=== PATIENT | male | born 1970 | race Caucasian/White ===

== ENCOUNTER 2023-04-03 12:23 | Outpatient (OUT) | payer BC, SELFPAY ==
[2023-04-03 13:17] LABS: Estimated Average Glucose 157 mg/dL; Glycohemoglobin A1C 7.1 % (4.5-6.2)
[2023-04-03 13:25] LABS: Basophils Percent Auto 0.4 % (0.2-2.0); Eosinophils Absolute Auto 0.1 10^3/uL (0.0-0.7); Eosinophils Percent Auto 2.1 % (0.9-7.0); Hematocrit 44.8 % (42.0-54.0); Hemoglobin 14.6 g/dL (14.0-18.0); Immature Granulocytes Abs Auto 0.01 10^3/uL (0.00-0.03); Immature Granulocytes Pct Auto 0.2 % (0.0-0.5); Lymphocytes Absolute Auto 1.8 10^3/uL (1.2-3.8); Lymphocytes Percent Auto 33.7 % (20.5-60.0); Mean Corpuscular HGB Conc 32.6 g/dL (29.9-35.2); Mean Corpuscular Hemoglobin 29.8 pg (25.9-34.0); Mean Corpuscular Volume 91.4 fL (80.0-94.0); Mean Platelet Volume 11.4 fL (9.5-13.5); Monocytes Absolute Auto 0.5 10^3/uL (0.3-0.8); Monocytes Percent Auto 8.8 % (1.7-12.0); Neutrophils Absolute Auto 2.9 10^3/uL (1.4-6.5); Neutrophils Percent Auto 54.8 % (43.0-75.0); Platelet Count 217 10^3/uL (150-450); Red Cell Distribution Width 13.2 % (11.0-15.0); White Blood Count 5.3 10^3/uL (4.0-11.0)
[2023-04-03 14:11] LABS: Alanine Aminotransferase 40 U/L (16-63); Albumin Globulin Ratio 1.1; Albumin Level 3.9 g/dL (3.4-5.0); Alkaline Phosphatase 115 U/L (46-116); Anion Gap 10.8; Aspartate Amino Transferase 25 U/L (15-37); BUN Creatinine Ratio 10.6; Bilirubin Total 0.9 mg/dL (0.2-1.0); Calcium 8.5 mg/dL (8.5-10.1); Chloride 104 mmol/L (98-107); Chol HDL Ratio 4.1; Cholesterol 169 mg/dL (<=200); Estimated GFR (African America >60 (>=60); Estimated GFR (Non-African Ame >60 (>=60); Globulin 3.4 g/dL; Glucose 124 mg/dL (74-106); HDL Cholesterol 41 mg/dL (40-60); Potassium 3.8 mmol/L (3.5-5.1); Sodium 138 mmol/L (136-145); Thyroid Stimulating Hormone 3.481 uIU/mL (0.358-3.740); Total Protein 7.3 g/dL (6.4-8.2); Triglycerides 176 mg/dL (<=150); VLDL CHOLESTEROL 35.2 mg/dL
== END 2023-04-03 12:24 | disposition home or self-care (01) ==
LOC: LAB 12:29
PROVIDERS: PCP Nurse Practitioner Family; Visit Provider Nurse Practitioner Family
DX: I10 Essential (primary) hypertension (principal); E78.2 Mixed hyperlipidemia; R63.8 Other symptoms and signs concerning food and fluid intake; Z83.3 Family history of diabetes mellitus
CPT/HCPCS: 36415; 80053; 80061; 83036; 84443; 85025

== ENCOUNTER 2023-06-13 11:20 | Outpatient (OUT) | payer BC, SELFPAY ==
[2023-06-13 11:59] LABS: Anion Gap 14.8; Calcium 8.6 mg/dL (8.5-10.1); Carbon Dioxide 25.2 mmol/L (21.0-32.0); Chloride 104 mmol/L (98-107); Estimated GFR (African America >60 (>=60); Estimated GFR (Non-African Ame >60 (>=60); Glucose 98 mg/dL (74-106); Sodium 140 mmol/L (136-145)
== END 2023-06-13 11:21 | disposition home or self-care (01) ==
PROVIDERS: PCP Nurse Practitioner Family; Visit Provider Internal Medicine Cardiovascular Disease
DX: I25.10 Atherosclerotic heart disease of native coronary artery without angina pectoris (principal); Z95.5 Presence of coronary angioplasty implant and graft; E78.5 Hyperlipidemia, unspecified; R60.0 Localized edema
CPT/HCPCS: 36415; 80048

== ENCOUNTER 2024-05-21 10:53 | Outpatient (OUT) | payer OTHER, SELFPAY ==
--- OUTSIDE RECORDS SUMMARY | 2024-05-21 10:57 | XMS_ITS | CCD ---
Author Organization [facility] Care Team Providers Care Stone Rougher Name Role Phone Tri Thorpe Unavailable [phone] Pb Madison Unavailable Tri Thorpe Unavailable Unavailable Unavailable Oleg Tran Referring Unavailable Oleg Tran Attending Unavailable JUSTYNA Thorpe Primary Care Provider JUSTYNA Thorpe Attending Provider DO Pb Madison Attending Provider [phone] Sebastien Cohen Unavailable JUSTYNA Thorpe Primary Care Provider MD Alejandra Da Silva Attending Provider [phone] JUSTYNA Thorpe Referring Provider JUSTYNA Thorpe Attending Provider Alejandra Da Silva Unavailable TRI THORPE Primary Care Unavail able MD Alejandra Da Silva Attending Provider JUSTYNA Thorpe Primary Care Provider JUSTYNA Thorpe Referring Provider JUSTYNA Thorpe Attending Provider FLO Hamlin Attending Provider [phone] Radha Hamlin Unavailable SOREN VAUGHAN Attending Unavailable Rohrbacher, Tri Primary Care Unavailable Hamlin, Radha Attending Unavailable Hamlin, Radha Admitting Unavailable Rohrbacher, Tri Primary Care Unavailable Alejandra Da Silva Attending Unavailable Rekha, Kamal Admitting Unavailable Erlinrbmarilynr Tri Referring Unavailable Rohrbacher, Tri Primary Care Unavailable Rohrbacher, Tri Admitting Unavailable Rohrbacher, Rti Attending Unavailable Alejandra Da Silva Attending Unavailable Rekha, Kamal Admitting Unavailable Rohrbacher, Tri Primary Care Unavailable Pb Madison Attending Unavailable Pb Madison Admitting Unavailable Rohrbmarilynr, Tri Primary Care Unavailable Allergies Allergy Classification Reported Allergen(s) Allergy Type Date of Onset Reaction(s) Facility Niacin (1 source) Niacin Drug Allergy 08-31-2023 [facility] Repository (18 sources) Niacin; Translations: [NIACIN] Drug Allergy 06-06-2023 Unknown [place] [id number] Repository (1 source) Niaspan TBCR; Translations: [Niaspan TBCR] Allergy to drug (finding) [facility] 250 DO Work Phone: Medications Current Medications Medication Drug Class(es) Dates Sig (Normalized) Sig (Original) 0.5 ML tirzepatide 10 MG/ML Auto-Injector [Mounjaro] (2 sources) Mounjaro 5 MG/0. 5ML INJECT 5MG UNDER THE SKIN ONCE WEEKLY for 28 7.5 mg dose, NOT 5 Active inject 5 mg by subcu taneous injection every week Mounjaro 5 MG/0.5ML 5 mg Subcutaneous Once weekly for 30 days Active 0.5 ML tirzepatide 15 MG/ML Auto-Injector [Mounjaro] (2 sources) Mounjaro 7.5 MG/ 0.5ML as directed Subcutaneous Once weekly for 28 days Active 0.5 ML tirzepatide 20 MG/ML Auto-Injector [Mounjaro] (1 source) Start: 07-06-2023 inject 10 mg by subcutaneous injection every week Mounjaro 10 MG/0.5ML 10 mg Subcutaneous Q week for 28 days E11.9 Jun, Active 0.5 ML tirzepatide 5 MG/ML Auto-Injector [Mounjaro] (5 sources) Start: 04-20-2023 Mounjaro 2.5 MG/0.5ML as directed Subcutaneous Once weekly for 28 days Apr, Active acetaminophen 500 mg oral tablet (15 sources) Start: 09-18-2023 take 1 tablet by mouth every six hours Acetaminophen (Tylenol Extra Strength) 500 mg tablet Active 500 MG PO Every 6 hours September 18, 2023 1:00am Tylenol PRN Acti ve amLODIPine 5 mg / benazepril hydrochloride 20 mg oral capsule (16 sources) Dihydropyridine Calcium Channel Santi, Angiotensin Converting Enzyme Inhibitor Start: 09-18-2023 End: 03-01-2024 take 1 capsule by mouth once daily Amlodipine-Benazepril Active 1 CAP PO Daily 90 March 01, 2024 8:20am Start: 04-27-2023 take 5-20 mg by mout h once daily amLODIPine Besy-Benazepril HCl - 5-20 MG Oral Capsule TAKE 1 CAPSULE Daily Quantity: 90 Refills: 3 Ordered: 27-Apr-2023 Oleg Tran MD Start : 27-Apr-2023 Active new start amLODIPine Besy- Benazepril HCl 5-20 MG as directed Orally Lotrel Active atorvastatin 80 mg oral tablet (20 sources) HMG-CoA Reductase Inhibitor Start: 09-18-2023 End: 03-01-2024 take 80 mg by mouth once daily Atorvastatin Active 80 MG PO Daily 90 90 March 01, 2024 8:20am take 1 tablet by corey th every twenty-four hours Atorvastatin Calcium 80 MG 1 tablet Oral ly Once a day Active clopidogrel 75 mg oral tablet (19 sources) [id number] Platelet Inhibitor Start: 09-18-2023 take 75 mg by mouth once daily Clopidogrel Active 75 MG PO Daily September 18, 2023 1:00am take 1 tablet by corey th every twenty-four hours Clopidogrel Bisulfate 75 MG 1 tablet Orally Once a day Active lisinopril 5 mg oral tablet (5 sources) Angiotensin Converting Enzyme Inhibitor take 1 tablet by mouth every twenty-four hours Lisinopril 5 MG 1 tablet Orally Once a day Active 24 hr metoprolol succinate 100 mg extended release oral tablet (20 sources) beta-Adrenergic Santi Start: End: take 100 mg by mouth once daily Metoprolol Succinate Active 100 MG PO Daily 90 90 March 01, 2024 8:20am take 1 tablet by corey th every twenty-four hours Metoprolol Succinate ER 100 MG 1 tablet Orally Once a day Active mounjaro 10 mg/0.5ml solution pen-injector (4 sources) inject 10 mg by subcutaneous injection every week Mounjaro 10 MG/0.5ML 10 mg Subcutaneous Q week for 28 days Active mounjaro 5 mg/0.5ml solution pen-injector (1 source) Mounjaro 5 MG/0. 5ML INJECT 5MG UNDER THE SKIN ONCE WEEKLY for 28 7.5 mg dose, NOT 5 Active Tirzepatide (1 source) Start: 03-01-2024 Tirzepatide (Mounjaro) 2.5 mg/0.5 mL pen injector Active 2.5 MG SUBCUT every week 10 07March 01, 2024 12:00am Completed/Discontinued Medications Medication Drug Class(es) Dates Sig (Normalized) Sig (Original) mounjaro 12.5 mg/0.5ml solution pen-injector (6 sources) Start: 07-06-2023 inject 12.5 mg by subcutaneous injection every week as needed Mounjaro 12.5 MG/0.5ML 12.5 MG Subcutaneous Q week for 28 days E11.9 27 Jun, 2023 Not-Taking/PRN Start: 07-06-2023 inject 12.5 mg by jack bcutaneous injection every week Mounjaro 12.5 MG/0.5ML 12.5 MG Subcutaneous Q week for 28 days E11.9 Jun, Active inject 12.5 mg by jack bcutaneous injection every week Mounjaro 12.5 MG/0.5ML 12.5 mg Subcutaneous Once weekly for 28 days can fill 10 mg if not available Active Mounjaro 2.5 MG/0.5ML Subcutaneous Solution Pen-injector (1 source) Mounjaro 2.5 MG/ 0.5ML Subcutaneous Solution Pen-injector as directed Quantity: 0 Refills: 0 Ordered: 27-Apr-2023 DO Active Tirzepatide (2 sources) Start: 10-08-2023 End: 03-01-2024 inject 15 mg by subcutaneous injection every week Tirzepatide Discontinued 15 MG SUBCUT every week 2 October 08, 2023 1:22pm March 01, 2024 8:07am Start: 10-08-2023 End: 10-08-2023 inject 15 mg by subcutaneous injection every week Tirzepatide Discontinued 15 MG SUBCUT every week October 08, 2023 1:00am October 08, 2023 1:23pm Tirzepatide (1 source) Start: 09-18-2023 End: 10-08-2023 inject 12.5 mg by subcutaneous injection every week Tirzepatide Discontinued 12.5 MG SUBCUT every week September 18, 2023 1:00am October 08, 2023 1:21pm Problems Active Problems Problem Classification Problem Date Documented Date Episodic/Chronic Coronary atherosclerosis and other heart disease (20 sources) Lipid-rich atherosclerosis of coronary artery; Translations: [Coronary atherosclerosis due to lipid rich plaque] Chronic Coronary atherosclerosis and other heart disease (1 source) Presence of coronary angioplasty implant and graft Episodic Diabetes mellitus without complication (20 sources) Type 2 diabetes mellitus; Translations: [Type 2 diabetes mellitus without complications] Chronic Disorders of lipid metabolism (20 sources) Mixed hyperlipidemia; Translations: [Mixed hyperlipidemia] Chronic Essential hypertension (20 sources) Essential hypertension; Translations: [Essential (primary) hypertension] Chronic Miscellaneous mental health disorders (4 sources) Not getting enough sleep; Translations: [Insufficient sleep syndrome] Chronic Other connective tissue disease (2 sources) Other specified soft tissue disorders Episodic Other diseases of veins and lymphatics (18 sources) Venous insufficiency of leg; Translations: [Venous insufficiency (chronic) (peripheral)] 09-18-2023 Episodic Other diseases of veins and lymphatics (4 sources) Venous insufficiency (chronic) (peripheral); Translations: [Venous (peripheral) insufficiency, unspecified] Episodic Other liver diseases (1 source) Fatty (change of) liver, not elsewhere classified; Translations: [Fatty (change of) liver, not elsewhere classified] Onset: 05-07-2023 Chronic Other nutritional; endocrine; and metabolic disorders (17 sources) Morbid obesity; Translations: [Morbid (severe) obesity due to excess calories] Chronic Other nutritional; endocrine; and metabolic disorders (5 sources) Morbid (severe) obesity due to excess calories; Translations: [Morbid obesity] Chronic Other nutritional; endocrine; and metabolic disorders (5 sources) Body mass index 40+ - severely obese; Translations: [Morbid obesity] 09-18-2023 Chronic Other nutritional; endocrine; and metabolic disorders (8 sources) Obesity; Translations: [Other obesity] Chronic Other nutritional; endocrine; and metabolic disorders (1 source) Other obesity Chronic Other nutritional; endocrine; and metabolic disorders (1 source) Body mass index (BMI) 45.0-49.9, adult Chronic Other nutritional; endocrine; and metabolic disorders (1 source) Other symptoms and signs concerning food and fluid intake Episodic Other screening for suspected conditions (not mental disorders or infectious disease) (3 sources) Encounter for screening for malignant neoplasm of colon; Translations: [Patient encounter status] Episodic Residual codes; unclassified (20 sources) Obstructive sleep apnea syndrome; Translations: [Obstructive sleep apnea (adult) (pediatric)] 09-18-2023 Chronic Residual codes; unclassified (7 sources) Obstructive sleep apnea (adult) (pediatric); Translations: [Obstructive sleep apnea (adult)(pediatric)] Chronic Residual codes; unclassified (3 sources) Idiopathic sleep related non-obstructive alveolar hypoventilation; Translations: [Idiopathic sleep related nonobstructive alveolar hypoventilation] Chronic Residual codes; unclassified (1 source) Idiopathic sleep related nonobstructive alveolar hypoventilation Chronic Residual codes; unclassified (1 source) Obstructive sleep apnea (adult)(pediatric); Translations: [Obstructive sleep apnea (adult) (pediatric)] Onset: 08-17-2023 Chronic Residual codes; unclassified (1 source) Hypoxia; Translations: [Idiopathic sleep related nonobstructive alveolar hypoventilation] 09-18-2023 Chronic Residual codes; unclassified (1 source) Family history of diabetes mellitus Episodic Residual codes; unclassified (1 source) Localized edema Episodic Residual codes; unclassified (1 source) Bilateral lower limb edema; Translations: [Edema] Episodic Screening and history of mental health and substance abuse codes (1 source) Ex-smoker; Translations: [Personal history of tobacco use] Episodic Comment on above: 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; Past or Other Problems Problem Classification Problem Date Documented Da te Episodic/Chronic Administrative/social admission (7 sources) Dietary counseling and surveillance; Translations: [Other specified counseling] Onset: 08-31-2023 Episodic Results Test Name Value Interpretation Reference Range Facil ity Office Visit (Cardiology)on 04-27-2023 Follow-up visit Diagnoses/Problems Assessed ASHD (arteriosclerotic heart disease) (414.00) (I25.10) Status post insertion of drug eluting coronary artery stent (V45.82) (Z95.5) Hyperlipidemia (272.4) (E78.5) Former smoker (V15.82) (Z87.891) FORMER OCCASIONAL SMOKER Morbid obesity with BMI of 60.0-69.9, adult (278.01,V85.44) (E66.01,Z68.44) Bilateral leg edema (782.3) (R60.0) Type 2 diabetes mellitus (250.00) (E11.9) Hypertension (401.9) (I10) Obstructive sleep apnea syndrome (327.23) (G47.33) Orders ASHD (arteriosclerotic heart disease), Bilateral leg edema, Hyperlipidemia, Status post insertion of drug eluting coronary artery stent Basic Metabolic Panel; Status:Active - Retrospective Authorization; Requested for:11May2023; ASHD (arteriosclerotic heart disease), Hyperlipidemia Renew: Atorvastatin Calcium 80 MG Oral Tablet; TAKE 1 TABLET PO DAILY ASHD (arteriosclerotic heart disease), Hypertension, Status post insertion of drug eluting coronary artery stent Renew: Clopidogrel Bisulfate 75 MG Oral Tablet; TAKE 1 TABLET DAILY IO EKG Electrocardiogram- 12 Lead; Status:Complete; Done: [id number] Renew: Metoprolol Succinate ER 100 MG Oral Tablet Extended Release 24 Hour; TAKE 1 TABLET DAILY Hypertension Start: amLODIPine Besy-Benazepril HCl - 5-20 MG Oral Capsule; TAKE 1 CAPSULE Daily Morbid obesity with BMI of 60.0-69.9, adult Healthy Weight Tips; Status:Complete - Retrospective Authorization; Done: [id number] Some eating tips that can help you lose weight.; Status:Complete - Retrospective Authorization; Done: [id number] SocHx: Former smoker Tobacco Use Screening; Status:Complete; Done: [id number] Unlinked Stop: Lisinopril 5 MG Oral Tablet Patient Instructions Please bring all medicines, vitamins, and herbal supplements with you when you come to the office. Prescriptions will not be filled unless you are compliant with your follow up appointments or have a follow up appointment scheduled as per instruction of your physician. Refills should be requested at the time of your visit. patient to keep pending visit with vascular stop Lininopril start amlodipine-benazepril labs ordered Blood Pressure Follow Up In 5-6 Follow up in 6 months Chief Complaint ROHRBACKER-CAD,PCI,LIP IDS. 53-year-old white male who is being referred to me for establishing cardiac relationship due to previous coronary stenting of the LAD in [place] in 2005. Has had no events since that time. He is morbidly obese male, he weighs 450 pounds and BMI of 61 kg per metered squared. The patient had no events since his angioplasty, he has a recent diagnosis of diabetes with history of hypertension and hyperlipidemia he is non-smoker. He has no previous history of strokes or TIA. No family history of premature CAD. 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 He is suspected to have sleep apnea and is scheduled to have home sleep study in the near future. He denies any angina palpitations no orthopnea or PND. He has no ulcerations on his feet. He has no peptic ulcer disease. He denies any angina orthopnea PND or palpitations and no dyspnea on exertion. His examination is remarkable for morbid obesity and stage II hypertension. His heart sounds are normal and his lungs are clear. His legs examination does not indicate significant PAD. Assessment/recommendat ions: 1?history of CAD status post PCI in 2016 the LAD with no prior infarction. He is on beta-santi therapy and Plavix along with high intensity statin. Present medical therapy will be left as it is. Address risk factor for CAD in details. Emphasized the need for maintaining regular exercise and losing weight. No indication presently for ischemia evaluation. 2?hypertension, currently uncontrolled. Will add Lotrel 5/20 mg daily and follow his blood pressure readings in few weeks. Low-salt diet and losing weight was recommended 3?diabetes recently diagnosed on medical therapy followed by PCP 4?hyperlipidemia on maximal dose atorvastatin which has been well-tolerated. The recent lab data done through her PCP was requested. LDL goal less than 70 mg/dL. 5?suspected sleep apnea patient scheduled for sleep study 6?morbid obesity, discussed with the patient the measures needed to bring his BMI down. 7?stigmata suggestive of venous insufficiency which is likely related to his morbid obesity. He is seeing vascular surgery in the near future. Surgical History Problems History of Cardiac catheterization with stent placement History of Tonsillectomy with adenoidectomy History of Vasectomy History of [place] tooth extraction Current Meds Medication NameInstruction Atorvastatin Calcium 80 MG Oral TabletTAKE 1 TABLET AT BEDTIME. Clopidogrel Bisulfate 75 MG Oral TabletTAKE 1 TABLET DAILY. Lisinopril 5 MG Oral TabletTAKE 1 TABLET DAILY. Metoprolol Succinate ER 100 MG Oral Tabl (more content not included)... Normal [facility] Screening.on 023 Adult depression screening assessment No [facility] 250 DO Work Phone: Tobacco use status [facility] b) No [facility] 250 DO Work Phone: Vital Signs Date Time Vital Sign Value Performing Clinician Facility 03-01-2024 08:03-0400 Body height 190.5 cm [facility] 03-01-2024 08:03-0400 Body mass index (BMI) [Ratio] 45.2 kg/m2 [facility] 03-01-2024 08:03-0400 Body weight 164.2 kg [facility] 03-01-2024 08:03-0400 Diastolic blood pressure 68 mm[Hg] [facility] 03-01-2024 08:03-0400 Heart rate 75 /min [facility] 03-01-2024 08:03-0400 SaO2% (BldA) [Mass fraction] 98 % [facility] 03-01-2024 08:03-0400 Systolic blood pressure 130 mm[Hg] [facility] 08-31-2023 14:30-0500 Body height 190.5 cm [facility] Other [facility] Other 08-31-2023 14:30-0500 Body mass index (BMI) [Ratio] 47.54 kg/m2 [facility] Other [facility] Other 08-31-2023 14:30-0500 Body weight 172.55 kg [facility] Other [facility] Other 08-31-2023 14:30-0500 Diastolic blood pressure 78 mm[Hg] Pb Madison Other [facility] Other 08-31-2023 14:30-0500 Respiratory rate 18 /min Pb Madison Other [facility] Other 08-31-2023 14:30-0500 SaO2% (BldA) [Mass fraction] 98 % Pb Madison Other [facility] Other 08-31-2023 14:30-0500 Systolic blood pressure 126 mm[Hg] Pb Madison Other [facility] Other 08-17-2023 15:00-0500 Body height 190.5 cm Radha Hamlin Other [facility] Other 08-17-2023 15:00-0500 Body mass index (BMI) [Ratio] 49.12 kg/m2 Radha Hamlin Other [facility] Other 08-17-2023 15:00-0500 Body weight 178.26 kg Radha Hamlin Other [facility] Other 08-17-2023 15:00-0500 Diastolic blood pressure 84 mm[Hg] Radha Hamlin Other [facility] Other 08-17-2023 15:00-0500 SaO2% (BldA) [Mass fraction] 95 % Radha Hamlin Other [facility] Other 08-17-2023 15:00-0500 Systolic blood pressure 140 mm[Hg] Radha Hamlin Other [facility] Other 06-08-2023 15:00-0400 Body mass index (BMI) [Ratio] 52.62 kg/m2 Alejandra Da Silva Other [facility] Other 06-08-2023 15:00-0400 Body weight 190.97 kg Alejandra Da Silva Other [facility] Other 06-08-2023 15:00-0400 Diastolic blood pressure 89 mm[Hg] Alejandra Da Silva Other [facility] Other 06-08-2023 15:00-0400 SaO2% (BldA) [Mass fraction] 95 % Alejandra Da Silva Other [facility] Other 06-08-2023 15:00-0400 Systolic blood pressure 146 mm[Hg] Alejandra Da Silva Other [facility] Other 06-08-2023 14:30-0400 Body height 190.5 cm [facility] Other [facility] Other 06-08-2023 14:30-0400 Body mass index (BMI) [Ratio] 52.29 kg/m2 [facility] Other [facility] Other 06-08-2023 14:30-0400 Body weight 189.79 kg [facility] Other [facility] Other 06-08-2023 14:30-0400 Diastolic blood pressure 80 mm[Hg] [facility] Other [facility] Other 06-08-2023 14:30-0400 Respiratory rate 18 /min [facility] Other [facility] Other 06-08-2023 14:30-0400 SaO2% (BldA) [Mass fraction] 94 % Pb Madison Other [facility] Other 06-08-2023 14:30-0400 Systolic blood pressure 141 mm[Hg] Pb Madison Other [facility] Other 05-07-2023 12:00-0400 Body height 190.5 cm Sebastien Cohen Other [facility] Other 05-07-2023 12:00-0400 Body mass index (BMI) [Ratio] 54.99 kg/m2 Sebastien Cohen Other [facility] Other 05-07-2023 12:00-0400 Body temperature 97.8 [degF] Sebastien Cohen Other [facility] Other 05-07-2023 12:00-0400 Body weight 199.58 kg Sebastien Cohen Other [facility] Other 05-07-2023 12:00-0400 Diastolic blood pressure 82 mm[Hg] Sebastien Cohen Other [facility] Other 05-07-2023 12:00-0400 SaO2% (BldA) [Mass fraction] 98 % Sebastien Cohen Other [facility] Other 05-07-2023 12:00-0400 Systolic blood pressure 128 mm[Hg] Sebastien Cohen Other [facility] Other 04-27-2023 14:01-0400 Diastolic blood pressure 92 mm[Hg] Tri Thorpe Work Phone: [facility] 250 DO Work Phone: 04-27-2023 14:01-0400 Systolic blood pressure 176 mm[Hg] Tri Gelleracher Work Phone: [facility] DO Work Phone: 04-27-2023 13:58-0400 Body height 182.88 cm Tri Gelleracher Work Phone: [facility] 250 DO Work Phone: 04-27-2023 13:58-0400 Body mass index (BMI) [Ratio] 60.9 kg/m2 Tri Gelleracher Work Phone: [facility] 250 DO Work Phone: 04-27-2023 13:58-0400 Body surface area Derived from formula 3 m2 Tri Thorpe Work Phone: [facility] 250 DO Work Phone: 04-27-2023 13:58-0400 Body weight 203.67 kg Tri Thorpe Work Phone: [facility] 250 DO Work Phone: 04-27-2023 13:58-0400 Diastolic blood pressure 90 mm[Hg] Tri Gellerachetj Work Phone: [facility] 250 DO Work Phone: 04-27-2023 13:58-0400 Heart rate 78 /min Tri Thorpe Work Phone: [facility] 250 DO Work Phone: 04-27-2023 13:58-0400 Systolic blood pressure 178 mm[Hg] Tri Gelleracher Work Phone: [facility] 250 DO Work Phone: 04-20-2023 14:15-0400 Body height 190.5 cm Pb Madison Other [facility] Other 04-20-2023 14:15-0400 Body mass index (BMI) [Ratio] 56.54 kg/m2 Pb Madison Other [facility] Other 04-20-2023 14:15-0400 Body weight 205.21 kg Pb Madison Other [facility] Other 04-20-2023 14:15-0400 Diastolic blood pressure 84 mm[Hg] Pb Madison Other [facility] Other 04-20-2023 14:15-0400 Respiratory rate 16 /min Pb Madison Other [facility] Other 04-20-2023 14:15-0400 SaO2% (BldA) [Mass fraction] 91 % Pb Madison Other [facility] Other 04-20-2023 14:15-0400 Systolic blood pressure 131 mm[Hg] Pb Madison Other [facility] Other 04-01-2023 09:30-0400 Body height 193.04 cm Tri Thorpe Other [facility] Other 04-01-2023 09:30-0400 Body mass index (BMI) [Ratio] 54.89 kg/m2 Tri Thorpe Other [facility] Other 04-01-2023 09:30-0400 Body weight 204.57 kg Tri Thorpe Other [facility] Other 04-01-2023 09:30-0400 Diastolic blood pressure 76 mm[Hg] Tri Thorpe Other [facility] Other 04-01-2023 09:30-0400 Respiratory rate 16 /min Tri Thorpe Other [facility] Other 04-01-2023 09:30-0400 SaO2% (BldA) [Mass fraction] 94 % Tri Thorpe Other [facility] Other 04-01-2023 09:30-0400 Systolic blood pressure 124 mm[Hg] Tri Thorpe Other [facility] Other Encounters Encounter Date Encounter Type Care Provider Facility Start: 03-01-2024 Patient encounter status [facility] Start: 03-01-2024 End: 03-01-2024 ambulatory [facility] Work Phone: Start: 03-01-2024 End: 03-01-2024 Encounter for general adult medical examination without abnormal findings [facility] Start: 03-01-2024 End: 03-01-2024 Patient encounter procedure [facility] Work Phone: Start: 10-12-2023 End: 10-12-2023 ambulatory SORNE VAUGHAN Not Available Start: 08-31-2023 End: 08-31-2023 ambulatory Tri Thorpe [place] [facility] Other Start: 08-31-2023 Follow-up encounter Pb muir [facility] Start: 08-17-2023 End: 08-17-2023 Patient encounter procedure [employer] Tri Thorpe Work Phone: [facility] Work Phone: Start: 08-17-2023 End: 08-17-2023 ambulatory JUSTYNA Thorpe Work Phone: [facility] Work Phone: Start: 08-17-2023 Office outpatient vi sit 25 minutes Radha Hamlin [facility] Start: 08-12-2023 End: 08-12-2023 ambulatory Pb Madison Other [facility] Other Start: 08-12-2023 Telephone encounter Pb muir [facility] Start: 08-06-2023 End: 08-06-2023 ambulatory Pb Madison Other [facility] Other Start: 08-06-2023 Telephone encounter Pb muir [facility] Start: 07-27-2023 End: 07-27-2023 ambulatory Pb Madison Other [facility] Other Start: 07-27-2023 Telephone encounter Pb muir [facility] Start: 07-06-2023 End: 07-06-2023 ambulatory Pb Madison Other [facility] Other Start: 07-06-2023 Telephone encounter Pb muir [facility] Start: 06-08-2023 End: 06-08-2023 ambulatory [facility] Ambulatory Start: 06-08-2023 Registered Recurring JUSTYNA Thorpe Work Phone: [facility] Work Phone: Start: 06-08-2023 End: 06-08-2023 Patient encounter procedure JUSTYNA Thorpe Work Phone: [facility] Work Phone: Start: 06-08-2023 End: 06-08-2023 ambulatory COMMERCIAL ARTISTFavian Thorpe Work Phone: [facility] Work Phone: Start: 06-08-2023 Follow-up encounter Pb [facility] Start: 06-08-2023 Office outpatient ne w 30 minutes Kamfish Da Silva [facility] Start: 05-12-2023 End: 05-12-2023 ambulatory Pb [place] Other [facility] Other Start: 05-12-2023 Telephone encounter Pb [facility] Start: 05-08-2023 End: 05-08-2023 ambulatory Tri Ila Other [facility] Other Start: 05-08-2023 Telephone encounter Tri mary [facility] Start: 05-07-2023 End: 05-07-2023 Patient encounter procedure COMMERCIAL ARTIST Tri Thorpe Work Phone: [facility] Work Phone: Start: 05-07-2023 End: 05-07-2023 ambulatory Alejandra Da Silva Facility:[facility] Start: 05-07-2023 Office outpatient ne w 30 minutes Sebastien Cohen [facility] Start: 05-07-2023 Telephone encounter Sebastien moura [facility] Adult Neuropsychologist Start: 05-07-2023 End: 05-07-2023 Patient encounter procedure COMMERCIAL ARTISTFavian Thorpe Work Phone: [facility] Work Phone: Start: 05-07-2023 End: 05-07-2023 ambulatory COMMERCIAL ARTISTFavian Thorpe Work Phone: [facility] Work Phone: Start: 04-27-2023 Office consultation new/estab patient 60 min Tri Thorpe Work Phone: [facility] DO Work Phone: Start: 04-27-2023 ambulatory Oleg Choiim Facility :[facility] Start: 04-23-2023 End: 04-23-2023 ambulatory Tri Ila Other [facility] Other Start: 04-23-2023 Telephone encounter Tri Kelvin her [facility] Start: 04-20-2023 End: 04-20-2023 ambulatory Pb [place] Other [facility] Other Start: 04-20-2023 Nutrition therapy [facility] Start: 04-20-2023 Registered Recurring JUSTYNA Thorpe Work Phone: [facility] Work Phone: Start: 04-07-2023 End: 04-07-2023 ambulatory Tri Thorpe Other [facility] Other Start: 04-07-2023 Telephone encounter Tri Kernindra her [facility] Start: 04-05-2023 End: 04-05-2023 ambulatory Pb [place] Other [facility] Other Start: 04-05-2023 Encounter by abdullahi king [facility] Start: 04-02-2023 ambulatory Oleg Choiim Facility :[facility] Start: 04-01-2023 End: 04-01-2023 ambulatory Tri Thorpe Other [facility] Other Start: 04-01-2023 Office outpatient ne w 30 minutes Tri Thorpe [facility] Procedures Date Procedure Procedure Detail Performing Clinician Start: 05-07-2023 Ultrasound elastography of liver JUSTYNA Thorpe Work Phone: Cardiac catheterization Phoebe Thorpe Work Phone: Extraction of wisdom tooth J katey Smith Ila Work Phone: History of placement of stent for coronary artery disease Status post insertion of drug eluting coronary artery stent Tri Luis Thorpe Work Phone: History of placement of stent in anterior descending branch of left coronary artery Tri Thorpe Other Tonsillectomy and adenoidectomy Tri Luis Thorpe Work Phone: Vasectomy Tri hurley Work Phone: Plan of Treatment Date Care Activity Detail Author Start: 05-07-2023 [facility] Comprehensive metabo lic 2000 panel - Serum or Plasma [facility] Immunizations Immunization Date Immunization Notes Care Provider Fa cility 08-16-2021 Moderna COVID-19 Vaccine 100 MCG/0.5ML Intramuscular Suspension Tri Smith Ila Work Phone: [facility] [facility] DO Work Phone: 07-19-2021 Moderna COVID-19 Vaccine 100 MCG/0.5ML Intramuscular Suspension Tri Smith Ila Work Phone: [facility] 250 DO Work Phone: Payers Date Payer Category Payer Self-pay 2021 [place] [id number] 1972 Unknown [id number] 1972 Unknown [id number] [id number] [id number] 1972 Unknown [id number] [id number] [id number] Unknown ANTHEM Unknown [id number] 2.16.8 [id number] Unknown [id number] 2.16.8 [id number] Unknown [id number] 2.16.8 [id number] Unknown [id number] 2.16.8 [id number] Unknown [id number] 2.16.8 [id number] Unknown [facility] [id number] Social History Date Type Detail Facility Sex Assigned At [facility] Other No illicit drug use No illicit drug use M 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1970 Sex Assigned At Male F [facility] Start: 03-01-2024 Tobacco smoking stat [facility] Never smoked tobacco (finding) [facility] Goals Date Patient Goal Desired Activity /State Clinical Notes 04-01-2023 to 08-31-2023 Note Date & Type Note Facility 08-31-2023 Evaluation note Encounter Date Diagnosis Assessment Notes Aug, Severe obesity (BMI >= 40) (ICD-10 - E66.01) Consultation date 04-20-2023, weight (pounds): 452.4 Follow-up date 06-08-2023, weight (pounds): 418.4 Follow-up date 08-31-2023, weight (pounds): 380.4 -Discussed treatment options including lifestyle interventions, such as calorie reduction and physical activity, and use of medications as an adjunct to amplify adherence to healthy behavior change-Discussed benefits, risks and side effects of medication. After informed discussion, patient would like to proceedOrders:-Co ntinue Mounjaro once weekly. Next dose 12.5 mg once weekly. Patient without side effect -FibroScan performed 05-14-2023 showing S3, F0-F1-A1c March 2023 7.1%-Follow up in clinic in 10 weeks with who is also a patientThis note was created with voice recognition software. 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 Aug, Dietary surveillance and counseling (ICD-10 - Z71.3) Discussed in detail high-protein, high-fiber, low-fat nutrition plan favoring calorie deficit and lean tissue mass preservation. Aug, Exercise counseling (ICD-10 - Z71.89) Absolute HGS at time of consultation (pounds): 90.2 Absolute HGS at time of follow-up (pounds): 104.1 Discussed in detail exercise interventions to promote lean tissue mass preservation during calorie restriction. Aug, Type 2 diabetes mellitus (ICD-10 - E11.9) A1c 7.1% March 2023 Explained pathophysiology of insulin resistance, carbohydrate intolerance, hyperglycemia Continue Mounjaro Aug, ASCVD (arterioscleroti c cardiovascular disease) (ICD-10 - I25.10) CAD with stenting of LAD in 2005, following with cardiology Aug, Mixed hyperlipidemia (ICD-10 - E78.2) Elevated triglycerides, low HDL cholesterol On statin Aug, Primary hypertension (ICD-10 - I10) Sleep study showing severe KASEY Aug, Obstructive sleep apnea (ICD-10 - G47.33) Following up with sleep medicine [facility] Other 01-08-2024 Evaluation note* Encounter Date Diagnosis Assessment Notes Treatment Notes Treatment Clinical Notes Aug, Obstructive sleep apnea (ICD-10 - G47.33) Fortunately, the patient is using and benefiting from treatment. Download was reviewed with patient, Current pressure is controlling apnea well, And we will make no changes at this time. His DL does show a significant leak, however patient states that he switched out masks and has resolved the leak. He was encouraged to continue to use his machine nightly, throughout the entire night as this does provide clinical benefit. He will follow-up in the sleep clinic in 1 year or sooner if problems. Aug, Nocturnal hypoxia (ICD-10 - G47.34) The patient was noted to have hypoxia on the sleep study. While this may resolve with control of sleep apnea, in some cases it may persist despite resolution of sleep apnea. Consequently it is advisable to perform home nocturnal pulse oximetry with the PAP device in use to confirm that the hypoxia is controlled. If it persists, supplemental nocturnal O2 should be bled into the PAP device. Aug, BMI 45.0-49.9, adult (ICD-10 - Z68.42) Weight reduction would be broadly beneficial for overall health, but would also have direct benefits on apnea severity and sleep quality. Even moderate weight reduction can affect KASEY and snoring, and in some patients weight reduction can completely resolve sleep apnea. Patient has been working on weight loss, he is on monjaro for his DM and is losing weight. Aug, Type 2 diabetes mellitus (ICD-10 - E11.9) Studies have shown that controlling sleep apnea significantly improves glycemic control and insulin resistance, thus allows for better management of diabetes. Aug, Primary hypertension (ICD-10 - I10) Positive effects of controlled KASEY and hypertension were reviewed. Control of sleep apnea will frequently have a positive effect on blood pressure control, and may additionally reduce blood pressure lability. 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 states that he tries to sleep longer but it is not conducive to his lifestyle. The patient is encouraged to get adequate and regular sleep time. Discussed the risk factors of insufficient sleep, including increased daytime fatigue, higher risk of work and driving accidents, decreased metabolic rate, higher risk of alzheimer's disease, etc. Aug, Other Call if any questions or problems. Patient is advised to work on healthy diet choices and appropriate servings, weight control, regular exercise as directed, and reduce fat intake. Use machine regularly, and keep up with mask changes as needed. Call if problems with mask toleration, increased sleepiness, or poor response to treatment. [facility] Other 10-30-2023 Evaluation note* Encounter Date Diagnosis Assessment Notes Treatment Notes Treatment Clinical Notes May, Severe obesity (BMI >= 40) (ICD-10 - E66.01) Consultation date 04-20-2023, weight (pounds): 452.4 Follow-up date 06-08-2023, weight (pounds): 418.4 Plan is to take a weight centric approach to patient care in the treatment of excess adiposity and patient's weight related comorbidities.-Discus sed the impact of excess adiposity on overall health and increased risk of associated health conditions-Discussed treatment options including lifestyle interventions, such as calorie reduction and physical activity, and use of medications as an adjunct to amplify adherence to healthy behavior change-Discussed benefits, risks and side effects of medication. After informed discussion, patient would like to proceedOrders:-Contin ue Mounjaro once weekly dose titration -Reducing refined carbohydrate, increasing protein -FibroScan performed 05-14-2023 showing S3, F0-F1-A1c March 2023 7.1%-Follow up in clinic in 8 weeks with who is also a patientThis note was created with voice recognition software. 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 May, Dietary surveillance and counseling (ICD-10 - Z71.3) Discussed in detail high-protein, high-fiber, low-fat nutrition plan favoring calorie deficit and lean tissue mass preservation.-Lean protein sources at each meal supplemented with nutrient rich, low calorie density carbohydrates-Focus on consuming calories earlier in the day versus later; breakfast and lunch should be largest meals-Evening meal should be high in protein and low in carbohydrate to maximize lipolysis overnight-Aim for a minimum of 40 g of protein per meal with breakfast, lunch and dinner with total daily intake reaching at least 120 g-If needed, supplement with whey protein powder or premade protein drink low in carbohydrate and low in fat-If hungry between meals, consider protein snack low in carbohydrate and low in fat May, Exercise counseling (ICD-10 - Z71.89) Absolute HGS at time of consultation (pounds): 90.2Discussed in detail exercise interventions to promote lean tissue mass preservation during calorie restriction.-In addition to regularly scheduled endurance and resistance exercise, perform bouts of resistance exercise prior to meals using body weight, resistance bands or dumbbells/weights-Fol lowing meals, consider aerobic exercise, such as brisk walking, to improve blood sugars and to mitigate hyperinsulinemia May, Type 2 diabetes mellitus (ICD-10 - E11.9) A1c 7.1% March 2023 Explained pathophysiology of insulin resistance, carbohydrate intolerance, hyperglycemia Use Mounjaro to treat both type 2 diabetes mellitus and obesity May, ASCVD (arteriosclerotic cardiovascular disease) (ICD-10 - I25.10) CAD with stenting of LAD in 2005, following with cardiology May, Mixed hyperlipidemia (ICD-10 - E78.2) Elevated triglycerides, low HDL cholesterol LDL cholesterol not at goal given clinical ASCVD, aim for LDL cholesterol below 55 May, Primary hypertension (ICD-10 - I10) Sleep study showing severe KASEY May, Obstructive sleep apnea (ICD-10 - G47.33) Following up with sleep medicine May, Chronic venous insufficiency of lower extremity (ICD-10 - I87.2) May, Other 65 minutes was spent reviewing patient specific healthcare information, interviewing, counseling, and communicating with the patient, and documenting clinical information. [facility] Other 10-30-2023 Evaluation note* Encounter Date Diagnosis Assessment Notes Treatment Notes Treatment Clinical Notes May, Severe obstructive sleep apnea (ICD-10 - G47.33) Discussed sleep study findings today at length, the severity of sleep disordered breathing and hypoxia was explained to the patient the importance of treatment with positive pressure therapy in addition to continued aggressive attempt to lose weight was also discussed today. We will initiate automated CPAP with minimum of 10 and maximum of 20 and see him for follow-up in 30 to 90 days after that May, Other obesity (ICD-10 - E66.8) [facility] Other 10-03-2023 Evaluation note* Encounter Date Diagnosis Assessment Notes Treatment Notes Treatment Clinical Notes May, Type 2 diabetes mellitus (ICD-10 - E11.9) [facility] Other 09-28-2023 Evaluation note* Encounter Date Diagnosis Assessment Notes Treatment Notes Treatment Clinical Notes Apr, Left leg swelling (ICD-10 - M79.89) This patient certainly has leg swelling. He is also super morbidly obese with a BMI of 54. I am glad to hear that he is seeking treatment for this as I do believe this will help his symptoms of leg swelling in the long-term. Patient does need a change in lifestyle with weight loss diet exercise. The meantime we will try and find a full functional venous duplex study that was recently completed and not [place] within the last year. We will find the study and review it and see if we can help this patient or offer him anything meantime I did recommend compression stockings the patient refused. Apr, Right leg swelling (ICD-10 - M79.89) [facility] Other 09-14-2023 Evaluation note* Encounter Date Diagnosis Assessment Notes Treatment Notes Treatment Clinical Notes Apr, Colon cancer screening (ICD-10 - Z12.11) [facility] Other 09-11-2023 Evaluation note* Encounter Date Diagnosis Assessment Notes Treatment Notes Treatment Clinical Notes Apr, Severe obesity (BMI >= 40) (ICD-10 - E66.01) Consultation date 04-20-2023, weight (pounds): 452.4Plan is to take a weight centric approach to patient care in the treatment of excess adiposity and patient's weight related comorbidities.-Discus sed the impact of excess adiposity on overall health and increased risk of associated health conditions-Discussed treatment options including lifestyle interventions, such as calorie reduction and physical activity, and use of medications as an adjunct to amplify adherence to healthy behavior change-Discussed benefits, risks and side effects of medication. After informed discussion, patient would like to proceedOrders:-Initia te Mounjaro 2.5 mg once weekly and titrate up as tolerated-A1c March 2023 7.1%-Follow up in clinic in 4 weeksThis note was created with voice recognition software. 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 Apr, Dietary surveillance and counseling (ICD-10 - Z71.3) Discussed in detail high-protein, high-fiber, low-fat nutrition plan favoring calorie deficit and lean tissue mass preservation.-Lean protein sources at each meal supplemented with nutrient rich, low calorie density carbohydrates-Focus on consuming calories earlier in the day versus later; breakfast and lunch should be largest meals-Evening meal should be high in protein and low in carbohydrate to maximize lipolysis overnight-Aim for a minimum of 40 g of protein per meal with breakfast, lunch and dinner with total daily intake reaching at least 120 g-If needed, supplement with whey protein powder or premade protein drink low in carbohydrate and low in fat-If hungry between meals, consider protein snack low in carbohydrate and low in fat -Accompanied by who is also a new patient, they will follow similar meal routine Apr, Exercise counseling (ICD-10 - Z71.89) Absolute HGS at time of consultation (pounds): 90.2Discussed in detail exercise interventions to promote lean tissue mass preservation during calorie restriction.-In addition to regularly scheduled endurance and resistance exercise, perform bouts of resistance exercise prior to meals using body weight, resistance bands or dumbbells/weights-Fol lowing meals, consider aerobic exercise, such as brisk walking, to improve blood sugars and to mitigate hyperinsulinemia Apr, Type 2 diabetes mellitus (ICD-10 - E11.9) A1c 7.1% March 2023 New diagnosis type 2 diabetes mellitus, he has never been told he had prediabetes Explained pathophysiology of insulin resistance, carbohydrate intolerance, hyperglycemia Use Mounjaro to treat both type 2 diabetes mellitus and obesity Apr, ASCVD (arteriosclerotic cardiovascular disease) (ICD-10 - I25.10) CAD with stenting of LAD in 2005, following with cardiology Apr, Mixed hyperlipidemia (ICD-10 - E78.2) Elevated triglycerides, low HDL cholesterol LDL cholesterol not at goal given clinical ASCVD, aim for LDL cholesterol below 55 Apr, Primary hypertension (ICD-10 - I10) Untreated KASEY Apr, Obstructive sleep apnea (ICD-10 - G47.33) Repeat sleep study pending Apr, Chronic venous insufficiency of lower extremity (ICD-10 - I87.2) Apr, Other 65 minutes was spent reviewing patient specific healthcare information, interviewing, counseling, and communicating with the patient, and documenting clinical information. [facility] Other 08-23-2023 Evaluation note* Encounter Date Diagnosis Assessment Notes Treatment Notes Treatment Clinical Notes Mar, Primary hypertension (ICD-10 - I10) To goal. Prior to your visit today we reviewed your chart and outlined the tetsing and treatment needed for your care. We discussed the possible complications of high blood pressure, including increased risk for heart disease, stroke, and kidney disease. Our goal is to keep your blood pressure below 130/85 (an preferably < 120/80) and maintain a healthy weight with a BMI less than 26. We are working together to acheive these goals with the following plan; healthier diet, increased activity and exercise, understanding your medicaitons, and your complaince. You have been given relevant education handouts. Mar, Unable to lose weigh t (ICD-10 - R63.8) Discussed with patient inability or lose weight. Does have a sedentary lifestyle. Does restrict calories but has not lost. Will get thyroid labs. Mar, Mixed hyperlipidemia (ICD-10 - E78.2) Mar, Family history of diabetes mellitus (ICD-10 - Z83.3) Mar, Atherosclerotic hear t disease of [place] coronary artery without angina pectoris (ICD-10 - I25.10) FOllows with Cardiology yearly. Is not happy with his care he would like are referral to Cardiology. Denies chest pain, SOB or palpitations. Mar, Coronary atherosclerosis due to lipid rich plaque (ICD-10 - I25.83) Mar, History of placement of stent in LAD coronary artery (ICD-10 - Z95.5) Mar, Obstructive sleep apnea (ICD-10 - G47.33) Has not had a recent sleep study, has not been using his CPAP. Continues to have snoring with frequent episodes of apnea. WIll refer for sleep study. Mar, Bilateral lower extremity edema (ICD-10 - R60.0) Continues to have bilateral lower extremity edema despite compression hoses and elevation. He is wanting to lose weight and is referred to weight lose clinic. ALso will refer to [facility] vascular for a second opinion of treatment for this. Referral placed. Mar, Chronic venous insufficiency of lower extremity (ICD-10 - I87.2) Mar, Obesity, morbid, BMI 50 or higher (ICD-10 - E66.01) [place] [facility] Other Evaluation [facility]No [facility] Other Evaluation noteNo assessment information available [facility] Work Phone: Evaluation note* Diagnosis Onset Date Resolution Status ASCVD (arteriosclerotic cardiovascular disease) acute CAD (coronary artery disease) acute Chronic venous insufficiency of lower extremity acute Hyperlipidemia acute Obstructive sleep apnea acut e Primary hypertension acute Screening for prostate cancer acute Severe obesity (BMI >= 40) a cute Type 2 diabetes mellitus acu te Wellness examination acute [facility] Work Phone: History general Narrative - Reported* Type Description Date Medical History ANGINA PECTORIS Medical History CAD Medical History CORONARY ANGIOPLASTY DISEASE Medical History HYERLIPDEMA Medical History HYERTENSION Surgical History HEART STENT 2006 Surgical History CARDIAC CATH Surgical History TONSILLECTOMY Hospitalization History SEE SURGICAL HX [facility] Other [facility] Narrative - Reported* Type Description Date Medical History ANGINA PECTORIS Medical History CAD Medical History CORONARY ANGIOPLASTY DISEASE Medical History HYERLIPDEMA Medical History HYERTENSION Surgical History HEART STENT 2006 Surgical History CARDIAC CATH Surgical History TONSILLECTOMY Surgical History Perry teeth extraction Hospitalization History SEE SURGICAL HX [facility] Other [facility] Narrative - Reported* Type Description Date Medical History ANGINA PECTORIS Medical History CAD Medical History CORONARY ANGIOPLASTY DISEASE Medical History HYERLIPDEMA Medical History HYERTENSION Medical History KASEY Surgical History HEART STENT 2006 Surgical History CARDIAC CATH Surgical History TONSILLECTOMY Surgical History [place] teeth extraction Hospitalization History SEE SURGICAL [facility] Other Reason for Referral Reason * 04/09 evaluate Diagnosis 1 Mixed hyperlipidemia (E78.2) Diagnosis 2 Atherosclerotic hear t disease of [place] coronary artery without angina pectoris (I25.10) Diagnosis 3 Coronary atheroscler osis due to lipid rich plaque (I25.83) Diagnosis 4 History of placement of stent in LAD coronary artery (Z95.5) Referral Organization [facility] [employer] Ferriday Referring Provider First Name Tri Referring Provider Last Name Yimiachetj Referring Provider Specialty Nurse Pract keshiaionetj Referred Organization [facility] enter Referred Provider Polly De Leon Referred Address [address],[address] Referred Provider Specialty Internal Med icine Referral Priority Routine General Notes Rimma Perez 11:38:16 AM >received today, attachments made, notes locked, referral faxed Reason *Waiting for appt evaluate Diagnosis 1 Bilateral lower extr emity edema (R60.0) Diagnosis 2 Chronic venous insuf ficiency of lower extremity (I87.2) Referral Organization [facility] Family Medicin e Ferriday Referring Provider First Name Tri Referring Provider Last Name Yimiachetj Referring Provider Specialty Nurse Pract itioner Referred Organization [facility] Vascular Surge ry Referred Provider Miek Callaway Referred Address [address] [facility],[place] [address],[place], [place],[address] Referred Provider Specialty Vascular [place] snow Referral Priority Routine General Notes Rimma Perez 11:35:04 AM >received today, sent P2P Chief Complaint * ROHRBACKER-CAD,PCI,LIPIDS. * 53-year-old white male who is being referred to me for establishing cardiac relationship due to previous coronary stenting of the LAD in [place] in 2005. Has had no events since that time. He is morbidly obese male, he weighs 450 pounds and BMI of 61 kg per metered squared. The patient had no eventssince his angioplasty, he has a recent diagnosis of diabetes with history of hypertension and hyperlipidemia he is non-smoker. He has no previous history of strokes or TIA. No family history of premature CAD. 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 He is suspected to have sleep apnea and is scheduled to have home sleep study in the near future. He denies any angina palpitations no orthopnea or PND. He has no ulcerations on his feet. He has no peptic ulcer disease. He denies any angina orthopnea PND or palpitations and no dyspnea on exertion. His examination isremarkable for morbid obesity and stage II hypertension. His heart sounds are normal and his lungs are clear. His legs examination does not indicate significant PAD. * Assessment/recommendations: * 1 history of CAD status post PCI in 2016 the LAD with no prior infarction. He is on beta-santi therapy and Plavix along with high intensity statin. Present medical therapy will be left as it is. Address risk factor for CAD in details. Emphasized the need for maintaining regular exercise and losing weight. No indication presently for ischemia evaluation. * 2 hypertension, currently uncontrolled. Will add Lotrel 5/20 mg daily and follow his blood pressurereadings in few weeks. Low-salt diet and losing weight was recommended * 3 diabetes recently diagnosed on medical therapy followed by PCP * 4 hyperlipidemia on maximal dose atorvastatin which has been well-tolerated. The recent lab data done through her PCP was requested. LDL goal less than 70 mg/dL. * 5 suspected sleep apnea patient scheduled for sleep study * 6 morbid obesity, discussed with the patient the measures needed to bring his BMI down. * 7 stigmata suggestive of venous insufficiency which is likely related to his morbid obesity. He is seeing vascular surgery in the near future. Family History Unknown Family Member Name Dates Details Family history of hypertensi on: Mother, Father(V17.49, Z82.49) Status:Active Family history of diabetes m ellitus: Mother, Father(V18.0, Z83.3) Status:Active Relationship Condition Age at Onset Recorded Date/T abimbola brother History of stroke Unknown Malignant neoplasm Unknown father Diabetes mellitus Unknown mother Diabetes mellitus Unknown Renal failure Unknown Unknown Hypertension Unknown Summary Purpose Advance Directives Advance Directive Response Recorded Date/ Time Advance Directives No April 3:47pm Advance Directive Response Recorded Date/ Time Advance Directives No April 2:47pm Advance Directive Response Recorded Date/ Time Advance Directives No August 28, 2023 11:08am Chief Complaint and Reason for Visit Chief Complaint Obesity E66.01, E11.9, I25.10, E78.2 Chief Complaint E66.01, E11.9, I25.1 0, E78.2 g47.33 cad e66.01 r06.83 f51.8 g47.33 cad e66.01 r06.83 f51.8 Obesity Chief Complaint g47.33 cad e66.01 r0 6.83 f51.8 Obesity Sleep apnea 31-90 day follow up Chief Complaint wellness Reason for Visit ASCVD (arteriosclero tic cardiovascular disease) CAD (coronary artery disease) Chronic venous insufficiency of lower extremity Hyperlipidemia Obstructive sleep apnea Primary hypertension Screening for prostate cancer Severe obesity (BMI >= 40) Type 2 diabetes mellitus Wellness examination Additional Source Comments REASON FOR VISIT (unrecogniz ed section and content) ESTABLISHUpdate Demographics - Personal Infolab resultsInitial WMNCologuardReferred by Tri Thorpe for Chronic venous insufficiency; BLE EdemaVascular surgery office noteCologiard resultsAS RefillWMN f/uSLEEP LABAS refill requestAS MounjaroAMS Mounjaro dose not availablesleep apnea f/uAMS MOUNJARO PA--lmWMN f/u (unrecognized sect ion and content) No Status Records FoundNo Status Records FoundNo Status Records FoundNo Status Records FoundNo Status Records Found INFORMATION SOURCE (unrecogn ized section and content) DATE CREATED AUTHOR 04/28/2023 [facility] DATE CREATED AUTHOR AUTHOR'S ORGANIZ ATION 04/28/2023 [facility] DATE CREATED AUTHOR AUTHOR'S ORGANIZ ATION 06/09/2023 [facility] DATE CREATED AUTHOR AUTHOR'S ORGANIZ ATION 10/13/2023 [facility] EPIC DATE CREATED AUTHOR AUTHOR'S ORGANIZ ATION 01/11/2024 [facility] Care Teams (unrecognized sec tion and content) Team Status: Active Member Role Status Dates Tri Thorpe APRN BAND AND CUFF CUTTER-C Primary Care Provider Active Team Status: Active Member Role Status Dates Tri Thorpe APRN B[employer] CUFF CUTTER-C Primary Care Provider, Attending Provider Active Team Status: Inactive Member Role Status Dates Tri Thorpe APRN BAND AND CUFF CUTTER-C Primary Care Provider Active Pb Madison DO Attending Provider Active Team Status: Inactive Member Role Status Dates Alejandra Da Silva MD Attending Provider Active Tri Thorpe APRN [employer] AND CU[employer] CUTTER-C Primary Care Provider, Referring Provider Active Team Status: Inactive Member Role Status Dates Tri Thorpe APRN BAND AND CUFF CUTTER-C Primary Care Provider Active Alejandra Da Silva MD Attending Provider Active Team Status: Inactive Member Role Status Dates Tri Thorpe APRN BAND AND CUFF CUTTER-C Primary Care Provider Active Radha Hamlin NP Attending Provider Active Team Status: Inactive Member Role Status Dates Tri Thorpe APRN BAND AND CUFF CUTTER-C Primary Care Provider, Attending Provider Active Start: March 01, 2024 End: March 01, 2024 Goals (unrecognized section and content) Goals may be documented in a n alternate section FOR RECORDS PERTAINING TO PATIENTS WHO ARE OR HAVE BEEN ENROLLED IN A CHEMICAL DEPENDENCY/SUBSTANCEABUSE PROGRAM, SOME INFORMATION MAY BE OMITTED. This clinical summary was aggregated from multiple sources. Caution should be exercised in using it in the provision of clinical care. This summary normalizes information from multiple sources, and as a consequence, information in this document may materially change the coding, format and clinical context of patient data. In addition, data may be omitted in some cases. CLINICAL DECISIONS SHOULD BE BASED ON THE PRIMARY CLINICAL RECORDS. [facility]. provides no warranty or guarantee of the accuracy or completeness of information in this document.
[2024-05-21 11:55] LABS: Basophils Percent Auto 0.3 % (0.2-2.0); Eosinophils Absolute Auto 0.1 10^3/uL (0.0-0.7); Eosinophils Percent Auto 1.5 % (0.9-7.0); Hematocrit 44.5 % (42.0-54.0); Hemoglobin 14.5 g/dL (14.0-18.0); Immature Granulocytes Abs Auto 0.02 10^3/uL (0.00-0.03); Immature Granulocytes Pct Auto 0.3 % (0.0-0.5); Lymphocytes Absolute Auto 2.1 10^3/uL (1.2-3.8); Lymphocytes Percent Auto 32.5 % (20.5-60.0); Mean Corpuscular HGB Conc 32.6 g/dL (29.9-35.2); Mean Corpuscular Hemoglobin 30.2 pg (25.9-34.0); Mean Corpuscular Volume 92.7 fL (80.0-94.0); Monocytes Absolute Auto 0.6 10^3/uL (0.3-0.8); Monocytes Percent Auto 9.2 % (1.7-12.0); Neutrophils Absolute Auto 3.7 10^3/uL (1.4-6.5); Neutrophils Percent Auto 56.2 % (43.0-75.0); Platelet Count 193 10^3/uL (150-450); Red Cell Distribution Width 13.2 % (11.0-15.0); White Blood Count 6.5 10^3/uL (4.0-11.0)
[2024-05-21 12:17] LABS: Alanine Aminotransferase 27 U/L (16-63); Albumin Globulin Ratio 1.1; Albumin Level 3.6 g/dL (3.4-5.0); Alkaline Phosphatase 84 U/L (46-116); Anion Gap 14.1; Aspartate Amino Transferase 23 U/L (15-37); BUN Creatinine Ratio 15.9; Bilirubin Total 1.1 mg/dL (0.2-1.0); Calcium 8.9 mg/dL (8.5-10.1); Chloride 108 mmol/L (98-107); Chol HDL Ratio 2.5; Cholesterol 116 mg/dL (<=200); Estimated GFR (African America >60 (>=60 mL/min/1.73m^2); Estimated GFR (Non-African Ame >60 (>=60 mL/min/1.73m^2); Globulin 3.2 g/dL; Glucose 106 mg/dL (74-106); HDL Cholesterol 46 mg/dL (40-60); LDL Cholesterol Calculated 49.2 mg/dL; Potassium 4.1 mmol/L (3.5-5.1); Sodium 144 mmol/L (136-145); Total Protein 6.8 g/dL (6.4-8.2); Triglycerides 104 mg/dL (<=150); VLDL CHOLESTEROL 20.8 mg/dL
[2024-05-21 12:44] LABS: Prostate Specific Antigen Scrn 0.57 ng/mL (<=4.00)
== END 2024-05-21 10:54 | disposition home or self-care (01) ==
LOC: LAB 10:55
PROVIDERS: PCP Nurse Practitioner Family; Visit Provider Nurse Practitioner Family
DX: Z12.5 Encounter for screening for malignant neoplasm of prostate (principal); E11.9 Type 2 diabetes mellitus without complications; I10 Essential (primary) hypertension; E78.5 Hyperlipidemia, unspecified; I25.10 Atherosclerotic heart disease of native coronary artery without angina pectoris
CPT/HCPCS: 36415; 80053; 80061; 85025; G0103

== ENCOUNTER 2025-02-21 13:45 | Outpatient (OUT) | payer OTHER, SELFPAY ==
--- OUTSIDE RECORDS SUMMARY | 2025-02-21 13:48 | XMS_ITS | Clinical Summary ---
Author Organization [facility] Address [address] [place] [address] Phone Care Team Providers Care Camera Systems Engineer Name Role Phone Tri Thorpe APRN-CLINICAL EVALUATOR Primary Care Pro vider Allergies Active Allergy Reactions Criticality Noted Date Comments Niacin Unknown 06/06/2023 Medications amLODIPine-derick zepriL (Lotrel) 5-20 mg capsule Take 1 capsule by mouth once daily. Active atorvastatin (Lipitor) 80 mg tablet Take 1 tablet (80 mg) by mouth once daily. Active clopidogrel (Plavix) 75 mg tablet Take 1 tablet (75 mg) by mouth once daily. Active metoprolol tartrate (Lopressor) 100 mg tablet Take 1 tablet (100 mg) by mouth once daily. Active tirzepatide (Mounjaro) 2.5 mg/0.5 mL pen injector Active Active Problems Problem Noted Date Diagnosed Date ASHD (arteriosclerotic heart disease) 06/06/2023 Bilateral leg edema 06/06/2023 Hyperlipidemia 06/06/2023 Hypertension 06/06/2023 Morbid obesity with BMI of 60.0-69.9, adult (Mul ti) 06/06/2023 Obstructive sleep apnea syndrome 06/06/2023 Type 2 diabetes mellitus 06/06/2023 Family History Medical History Relation Name Comments Diabetes Father Hypertension Father Diabetes Mother Hypertension Mother Relation Name Status Comments Father Mother Social History Tobacco Use Types Packs/Day Years Used Date Smoking Tobacco: Never Assessed Sex and Gender Information Value Date Recorded Sex Assigned at Not on file Legal Sex Male 2:22 PM EDT Gender Identity Not on file Sexual Orientation Not on file Last Filed Vital Signs Vital Sign Reading Time Taken Comments Blood Pressure 132/80 06/08/2023 4:03 PM EDT Pulse 78 04/27/2023 1:58 PM EDT Temperature - - Respiratory Rate - - Oxygen Saturation - - Inhaled Oxygen Concentration - - Weight 191 kg (420 lb) 06/08/2023 4:02 PM EDT Height 193 cm (6' 4 ) 06/08/2023 4:02 PM EDT Body Mass Index 51.12 06/08/2023 4:02 PM EDT Plan of Treatment Health Maintenance Due Date Last Done Comments CT Colonography 1972 Colonoscopy 1972 Colorectal Cancer Screening 1972 Diabetes: Hemoglobin A1C 1972 Diabetes: Urine Protein Screening 1972 FIT-DNA (Cologuard) 1972 FIT 1972 HIV Screening 1972 Lipid Panel 1972 Sigmoidoscopy 1972 Yearly Adult Physical 1972 MMR Vaccines (1 of 1 - Standard series) 02/13/1973 Diabetes: Retinopathy Screening 02/13/1982 Hepatitis C Screening 02/13/1990 Hepatitis B Vaccines (1 of 3 - 19+ 3-dose series) 02/13/1991 Pneumococcal Vaccine (1 of 2 - PCV) 02/13/1991 DTaP/Tdap/Td Vaccines (1 - Tdap) 02/13/1994 Zoster Vaccines (1 of 2) 02/13/2022 COVID-19 Vaccine (3 - 2023-2 5 season) 2024 08/16/2021, 07/19/2021 Influenza Vaccine (#1) 2025 HIB Vaccines Aged Out No longer eligi ble based on patient's age to complete this topic HPV Vaccines (No Doses Required) Completed Hepatitis A Vaccines Aged Out No long er eligible based on patient's age to complete this topic IPV Vaccines Aged Out No longer eligi ble based on patient's age to complete this topic Meningococcal Vaccine Aged Out No pj jakob eligible based on patient's age to complete this topic Rotavirus Vaccines Aged Out No longer eligible based on patient's age to complete this topic Insurance Care Teams Camera Systems Engineer Relationship Specialty Start Date End Date Tri Thorpe APRN-CLINICAL EVALUATOR PCP - General 04/27/23
--- OUTSIDE RECORDS SUMMARY | 2025-02-21 13:48 | XMS_ITS | Clinical Summary ---
Author Organization [facility] Address [id number] [address] [place] [address] Care Team Providers Care Machine Deburrer Name Role Phone Aman, Annalise Carleen DODGE Primary Care Provider Unavaila ble Allergies Active Allergy Reactions Criticality Noted Date Comments Niacin Rash Low 01/30/2015 Medications albuterol (PROVENTIL HFA;VENTOLIN HFA) 90 mcg/actuation inhalerIndications :COVID-19 Inhale 2 puffs every 4 (four) hours as needed for wheezing. 18 g 03/27/20 21 Active Additional Information Patient not taking.Reported on 03/10/2022 furosemide (LASIX) 20 mg tablet Take 1 tablet (20 mg total) by mouth as needed (Leg edema). PT WILL NEED LABS FOR FURTHER REFILLS 90 tablet 07/07/20 22 Active Additional Information Patient not taking.Reported on 07/28/2022 metoprolol succinate XL (TOPROL XL) 100 mg 24 hr tabletIndications: Atherosclerosis of atka coronary artery of atka heart without angina pectoris TAKE 1 TABLET (100 MG TOTAL) BY MOUTH IN THE MORNING. 90 tablet 3 09/08/19 23 Active atorvastatin (LIPITOR) 80 mg tabletIndications: Hyperlipidemia, unspecified hyperlipidemia type TAKE 1 TABLET (80 MG TOTAL) BY MOUTH IN THE MORNING. 90 tablet 09/08/19 23 Active clopidogreL (PLAVIX) 75 mg tabletIndications: Atherosclerosis of atka coronary artery of atka heart without angina pectoris TAKE 1 TABLET (75 MG TOTAL) BY MOUTH IN THE MORNING. 90 tablet 09/08/19 23 Active lisinopriL (PRINIVIL,ZESTRIL) 5 mg tabletIndications: Benign hypertension TAKE 1 TABLET (5 MG TOTAL) BY MOUTH IN THE MORNING. 90 tablet 09/08/19 23 Active Active Problems Problem Noted Date Diagnosed Date BMI 50.0-59.9, adult 07/06/2022 Leg edema 07/06/2022 History of placement of stent in LAD coronary ar kermit 03/09/2022 Benign hypertensive heart di sease without congestive heart failure 09/28/2013 Hyperlipidemia 05/20/2006 Percutaneous transluminal coronary angioplasty s tatus 05/20/2006 Chronic coronary artery disease 04/17/2006 Hypertension Coronary angioplasty status Family History Medical History Relation Name Comments Coronary artery disease Father Hypertension Mother Relation Name Status Comments Father Mother Social History Tobacco Use Types Packs/Day Years Used Date Smoking Tobacco: Former Smokeless Tobacco: Never Tobacco Cessation:Counseling Given: Not Answered Alcohol Use Standard Drinks/Week Comments Yes 0 (1 standard drink = 0.6 oz pur e alcohol) rarely Childcare Answer Date Recorded Childcare Unknown 01/19/2019 Employment Answer Date Recorded Employment Unknown 01/19/2019 Purpose - Life Answer Date Recorded Purpose and direction in life Unknown Sex and Gender Information Value Date Recorded Sex Assigned at Not on file Legal Sex Male 11:32 AM EDT Gender Identity Not on file Sexual Orientation Not on file Last Filed Vital Signs Vital Sign Reading Time Taken Comments Blood Pressure 165/97 09/29/2022 2:40 PM EST Pulse 99 09/29/2022 2:40 PM EST Temperature 36.7 C (98 F) 03/27/2021 6:53 PM EDT Respiratory Rate 22 03/27/2021 8:31 PM EDT Oxygen Saturation 97% 07/07/2022 3:37 PM EST Inhaled Oxygen Concentration - - Weight 206.8 kg (456 lb) 09/29/2022 2:40 PM EST Height 193 cm (6' 4 ) 07/07/2022 3:37 PM EST Body Mass Index 55.51 07/07/2022 3:37 PM EST Plan of Treatment Health Maintenance Due Date Last Done Comments Depression Screening 1984 Tobacco Screening 1984 DTaP,Tdap and Td Vaccines (1 - Tdap) 02/13/1991 Zoster (Shingles) Vaccine (1 of 2) 02/13/2022 Adult BMI Screening 09/29/2023 09/29/2022 COVID-19 Vaccine ( season) 04/10/202402/2022, 07/19/2021 Influenza Vaccine 04/10/2025 Medical Devices Not on file Insurance ANTHEM Care Teams Machine Deburrer Relationship Specialty Start Date End Date Annalise Newton DO PCP - General Family Medicine 06/06/21
--- OUTSIDE RECORDS SUMMARY | 2025-02-21 13:48 | XMS_ITS | Clinical Summary ---
Author Organization [facility] Address [address] [place] [address] Care Team Providers Care Rn Team Leader Name Role Phone Ananlise Newton DO Primary Care Provider [phone] Allergies Active Allergy Reactions Criticality Noted Date Comments Niacin Rash Low 01/30/2015 Medications atorvastatin (Lipitor) 80 MG tablet Take 80 mg by mouth in the morning. 09/08/2022 Active clopidogrel (Plavix) 75 MG tablet Take 75 mg by mouth in the morning. 09/08/2022 Active lisinopril 5 MG tablet Take 5 mg by mouth in the morning. Active metoprolol succinate XL (Toprol-XL) 100 MG 24 hr tablet Take 100 mg by mouth in the morning. 09/08/2022 Active Mounjaro 5 MG/0.5ML solution pen-injector 06/09/2023 Active Family History Medical History Relation Name Comments Cancer Brother Ruddy Hyperlipidemia Brother Ruddy Hypertension Brother Ruddy Lymphoma Brother Ruddy B cell Diabetes Father Heart disease Father Hyperlipidemia Father Hypertension Father Arthritis Mother Diabetes Mother Heart disease Mother Hyperlipidemia Mother Hypertension Mother Kidney failure Mother Obesity Mother Hyperlipidemia Other Aunt/Uncle Hypertension Other Aunt/Uncle Obesity Other Aunt/Uncle Relation Name Status Comments Brother Ruddy Daughter 1, healthy Father Alive Mother Other Aunt/Uncle Sister 1 Son 1 Social History Tobacco Use Types Packs/Day Years Used Date Smoking Tobacco: Former Cigarettes Smokeless Tobacco: Never Tobacco Cessation:Counseling Given: Not Answered Alcohol Use Standard Drinks/Week Comments Not Currently 0 (1 standard drink = 0.6 oz pur e alcohol) Sex and Gender Information Value Date Recorded Sex Assigned at Not on file Legal Sex Male 7:15 PM EDT Gender Identity Male 10/22/2022 7:15 PM EDT Sexual Orientation Not on file Last Filed Vital Signs Vital Sign Reading Time Taken Comments Blood Pressure 146/94 05/21/2021 12:00 PM EDT Pulse - - Temperature - - Respiratory Rate - - Oxygen Saturation - - Inhaled Oxygen Concentration - - Weight 181 kg (400 lb) 10/12/2023 3:00 PM EST Height 190.5 cm (6' 3 ) 10/12/2023 3:00 PM EST Body Mass Index 50 10/12/2023 3:00 PM EST Plan of Treatment Health Maintenance Due Date Last Done Comments CT Colonography 1972 Colonoscopy 1972 Colorectal Cancer Screening 1972 FIT-DNA 1972 FIT 1972 FOBT 1972 Sigmoidoscopy 1972 Influenza Vaccine (#1) 2025 Insurance BC[employer] Care Teams Rn Team Leader Relationship Specialty Start Date End Date Annalise Newton DO PCP - General Family Medicine 02/18/23
--- OUTSIDE RECORDS SUMMARY | 2025-02-21 13:48 | XMS_ITS | Encounter Summary ---
Author Organization [facility] Address [address] [place] [address] Care Team Providers Care Wellness Guide Name Role Phone Annalise Newton DO Primary Care Provider [phone] Encounter Details Date Type Department Care Team (Late st Contact Info) Description 02/18/2023 Abstract [facility] [address] [place] [id number] Macho Kaur, DELANEY [address] [place], [place] [id number] Social History Tobacco Use Types Packs/Day Years Used Date Smoking Tobacco: Former Cigarettes Tobacco Cessation:Counseling Given: Not Answered Sex and Gender Information Value Date Recorded Sex Assigned at Not on file Legal Sex Male 7:15 PM EDT Gender Identity Male 10/22/2022 7:15 PM EDT Sexual Orientation Not on file documented as of this encounter Plan of Treatment Not on file documented as of this encounter Visit Diagnoses Not on filedocumented in this encounter Care Teams Wellness Guide Relationship Specialty Start Date End Date Annalise Newton DO PCP - General Family Medicine 02/18/23 documented as of this encounter
--- OUTSIDE RECORDS SUMMARY | 2025-02-21 13:48 | XMS_ITS | Encounter Summary ---
Author Organization [facility] Address [address] [place] [address] Phone Care Team Providers Care Product Safety Engineer Name Role Phone Tri Thorpe Primary Care Pro vider Encounter Details Date Type Department Care Team (Late st Contact Info) Description 04/28/2023 Scanned Document [facility] [address] [place] [address] Conversion, Onbase Social History Tobacco Use Types Packs/Day Years Used Date Smoking Tobacco: Never Assessed Sex and Gender Information Value Date Recorded Sex Assigned at Not on file Legal Sex Male 2:22 PM EDT Gender Identity Not on file Sexual Orientation Not on file documented as of this encounter Plan of Treatment Not on file documented as of this encounter Visit Diagnoses Not on filedocumented in this encounter Care Teams Product Safety Engineer Relationship Specialty Start Date End Date Tri Thorpe APRN-CNP PCP - General 04/27/23 documented as of this encounter
--- OUTSIDE RECORDS SUMMARY | 2025-02-21 13:48 | XMS_ITS | Encounter Summary ---
Author Organization [facility] Address [address] [place] [address] Phone Care Team Providers Care Grievance And Appeals Coordinator Name Role Phone Tri Thorpe Primary Care Pro vider Encounter Details Date Type Department Care Team (Late st Contact Info) Description 04/02/2023 Scanned Document [facility] [address] [place] [address] Conversion, Onbase Social History Tobacco Use Types [...] on filedocumented in this encounter Care Teams Grievance And Appeals Coordinator Relationship Specialty Start Date End Date Tri Thorpe APRN-CNP PCP - General 04/27/23 documented as of this encounter
--- OUTSIDE RECORDS SUMMARY | 2025-02-21 13:48 | XMS_ITS | Encounter Summary ---
Author Organization [facility] Address [address] [place] [address] Phone Care Team Providers Care Prosthetics Technician Name Role Phone Tri Thorpe Primary Care Pro vider Encounter Details Date Type Department Care Team (Late st Contact Info) Description 04/03/2023 Orders Only [facility] [address] [place] [address] Conversion, Onbase Social History Tobacco Use Types Packs/Day Years Used Date Smoking Tobacco: Never Assessed Sex and Gender Information Value Date Recorded Sex Assigned at Not on file Legal Sex Male 2:22 PM EDT Gender Identity Not on file Sexual Orientation Not on file documented as of this encounter Plan of Treatment Scheduled Orders Name Type Priority Associated Diagnoses Orde r Schedule OUTSIDE LAB SCAN Lab Ordered: 04/03/2023 documented as of this encounter Visit Diagnoses Not on filedocumented in this encounter Care Teams Prosthetics Technician Relationship Specialty Start Date End Date Tri Thorpe APRN-CNP PCP - General 04/27/23 documented as of this encounter
--- OUTSIDE RECORDS SUMMARY | 2025-02-21 13:48 | XMS_ITS | Encounter Summary ---
Author Organization [facility] Address [address] [place] [address] Phone Care Team Providers Care Body Corporate Manager Name Role Phone Tri Thorpe Primary Care Pro vider Encounter Details Date Type Department Care Team (Late st Contact Info) Description 04/01/2023 Scanned Document [facility] [address] [place] [address] Conversion, Onbase Social History Tobacco Use Types [...] on filedocumented in this encounter Care Teams Body Corporate Manager Relationship Specialty Start Date End Date Tri Thorpe APRN-CNP PCP - General 04/27/23 documented as of this encounter
--- OUTSIDE RECORDS SUMMARY | 2025-02-21 13:48 | XMS_ITS | Encounter Summary ---
Author Organization [facility] Address [address] [place] [address] Phone Care Team Providers Care Educational Psychology Professor Name Role Phone Tri Thorpe Primary Care Pro vider Encounter Details Date Type Department Care Team (Late st Contact Info) Description 04/27/2023 Scanned Document [facility] [address] [place] [address] Conversion, Onbase Social History Tobacco Use Types Packs/Day Years Used Date Smoking Tobacco: Never Assessed Sex and Gender Information Value Date Recorded Sex Assigned at Not on file Legal Sex Male 2:22 PM EDT Gender Identity Not on file Sexual Orientation Not on file documented as of this encounter Functional Status * Little interest or pleasure in doing things Answer Date of Assessment Author Not at all 04/27/2023 1:58 PM EDT Conversio n, [employer] Vitals documented as of this encounter Plan of Treatment Not on file documented as of this encounter Procedures Procedure Name Priority Date/Time Associated Diagnosis Comments ELECTROCARDIOGRAM RHYTHM STRIP 04/27/2023 documented in this encounter Results * ELECTROCARDIOGRAM RHYTHM STRIP (04/27/2023) Narrative 04/27/2023 Ordered by an unspecified provider. us Onbase Conversion ECG ORDERABLES Final Result documented in this encounter Visit Diagnoses Not on filedocumented in this encounter Care Teams Educational Psychology Professor Relationship Specialty Start Date End Date Tri Thorpe APRN-CNP PCP - General 04/27/23 documented as of this encounter
--- OUTSIDE RECORDS SUMMARY | 2025-02-21 13:48 | XMS_ITS | Encounter Summary ---
Author Organization [facility] Address [id number] [address] [place] [address] Care Team Providers Care Pool Table Mechanic Name Role Phone Annalise Newton DO Primary Care Provider Unavaila ble Reason for Visit * Reason Comments Med Refill Encounter Details Date Type Department Care Team (Late st Contact Info) Description 12/07/2017 Refill [facility] [address] [place], [place] [phone] Zach Angelo DO [address] [place] [address], [address] [place] [id number] Med Refill Social History Tobacco Use Types Packs/Day Years [...] on filedocumented in this encounter Care Teams Pool Table Mechanic Relationship Specialty Start Date End Date Annalise Newton DO PCP - General Family Medicine 06/06/21 documented as of this encounter
--- NOTE | 2025-02-21 13:54 | XR_ITS ---
[place] [address] Patient Name: EDWARD ESCOBEDO MRN: [id number] date: 1970 Sex: M Assigned Patient Location: [facility] Current Patient Location: [facility] Accession/Order Number: [id number] Exam Date: 02/21/2025 15:13 Report Date: 02/21/2025 15:15 At the request of: PAUL ANTONY Procedure: XR lumbar spine min 4V 5 views Lumbar Spine HISTORY: Acute lumbar pain. Weeks' duration. Lifting injury COMPARISON: None POSTSURGICAL CHANGES: None BONY ALIGNMENT: Adequate HYPERMOBILITY:No bending imaging. LISTHESIS:8 mm L5-S1 retrolisthesis. A 9 mm L4-5 anterolisthesis FRACTURE: None DEGENERATIVE CHANGES: Extensive L4-5 and L5-S1 spondylosis with marked disc space narrowing and endplate spurring. Extensive lower lumbar facet degeneration SOFT TISSUES: Unremarkable BONY MINERALIZATION:Adequate XR/XR lumbar spine min 4V IMPRESSION: 8 mm L5-S1 retrolisthesis. 9 mm L4-5 anterolisthesis. Extensive lower lumbar change Impression dictated by: Mike Lr M.D. 02/21/2025 3:15 PM Dictation Location: [place] [address] Electronically authenticated by: [id number] Y Date: 02/21/2025 15:15
== END 2025-02-21 13:46 | disposition home or self-care (01) ==
PROVIDERS: PCP Nurse Practitioner Family; Visit Provider Nurse Practitioner Family
DX: M54.50 Low back pain, unspecified (principal); M43.16 Spondylolisthesis, lumbar region
CPT/HCPCS: 72110

== ENCOUNTER 2025-03-27 09:10 | Outpatient (OUT) | payer OTHER, SELFPAY ==
--- OUTSIDE RECORDS SUMMARY | 2025-03-27 09:18 | XMS_ITS | CCD ---
Author Organization [facility] Care Team Providers Care Captain/Airline Pilot Name Role Phone Tri Thorpe Unavailable [phone] Pb Madison Unavailable Tri Thorpe Unavailable [phone] Unavailable Unavailable Oleg Tran Referring Unavailable Oleg Tarn Attending Unavailable JUSTYNA Thorpe Primary Care Provider JUSTYNA Thorpe Attending Provider DO Pb Madison Attending Provider Sebastien Cohen Unavailable [phone] JUSTYNA Thorpe Primary Care Provider MD Alejandra Da Silva Attending Provider [phone] JUSTYNA Thorpe Referring Provider JUSTYNA Thorpe Attending Provider Alejandra Da Silva Unavailable TRI THORPE Primary Care Unavail able MD Alejandra Da Silva Attending Provider JUSTYNA Thorpe Primary Care Provider JUSTYNA Thorpe Referring Provider JUSTYNA Thorpe Attending Provider FLO Hamlin Attending Provider [phone] Radha Hamlin Unavailable SOREN VAUGHAN Attending Unavailable Rohrbacher, Tri Primary Care Unavailable Hamlin, Radha Attending Unavailable Hamlin, Radha Admitting Unavailable Rohrbacher, Tri Primary Care Unavailable Rekha, Alejandra Attending Unavailable Rekha, Arcadioal Admitting Unavailable ErlinrbacherLilianaTri Referring Unavailable Rohrbacher, Tri Primary Care Unavailable Rohrbacher, Tri Admitting Unavailable Rohrbacher, Tri Attending Unavailable Chaclaudia, Arcadioal Attending Unavailable Rekha, Arcadioal Admitting Unavailable Erlinrbacher, Tri Primary Care Unavailable Pb Madison Attending Unavailable Pb Madison Admitting Unavailable Erlinrbacher, Tri Primary Care Unavailable Rohrbacher Tri JANSEN Primary Care Provider Tri Thorpe APRN Attending Provider [phone] Allergies Allergy Classification Reported Allergen(s) Allergy Type Date of Onset Reaction(s) Facility Niacin (1 source) Niacin Drug Allergy 08-31-2023 [facility] Repository (18 sources) Niacin; Translations: [NIACIN] Drug Allergy 06-06-2023 Unknown [facility] Repository (1 source) Niaspan TBCR; Translations: [Niaspan TBCR] Allergy to drug (finding) [facility] 250 DO Work Phone: Medications Current Medications [...] Apr, Active acetaminophen 500 mg oral tablet (18 sources) Start: 09-18-2023 take 1 tablet by mouth every six hours as needed Acetaminophen (Tylenol Extra Strength) 500 mg tablet Active 500 MG PO Every 6 hours as needed September 18, 2023 1:00am Complies with drug therapy Tylenol PRN Acti ve amLODIPine 5 mg / benazepril hydrochloride 20 mg oral capsule (20 sources) Dihydropyridine Calcium Channel Santi, Angiotensin Converting Enzyme Inhibitor Start: 09-18-2023 End: 03-06-2025 take 1 capsule by mouth once daily Amlodipine-Benazepril 5-20 mg capsule Active 1 CAP PO Daily March 06, 2025 8:31am Complies with drug therapy Start: 04-27-2023 take 5-20 mg by mout h once daily amLODIPine Besy-Benazepril HCl - 5-20 MG Oral Capsule TAKE 1 CAPSULE Daily Quantity: 90 Refills: 3 Ordered: 27-Apr-2023 Oleg Tran MD Start : 27-Apr-2023 Active new start amLODIPine Besy- Benazepril HCl 5-20 MG as directed Orally Lotrel Active atorvastatin 80 mg oral tablet (20 sources) HMG-CoA Reductase Inhibitor Start: 09-18-2023 End: 03-06-2025 take 1 tablet by mouth once daily Atorvastatin 80 mg tablet Active 80 MG PO Daily March 06, 2025 8:31am Complies with drug therapy take 1 tablet by corey th every twenty-four hours Atorvastatin Calcium 80 MG 1 tablet Oral ly Once a day Active clopidogrel 75 mg oral tablet (20 sources) [id number] Platelet Inhibitor Start: 09-18-2023 End: 03-06-2025 take 1 tablet by mouth once daily Clopidogrel 75 mg tablet Active 75 MG PO Daily March 06, 2025 8:32am Complies with drug therapy take 1 tablet by corey th every [...] (20 sources) beta-Adrenergic Santi Start: End: take 1 tablet by mouth once daily Metoprolol Succinate 100 mg tablet extended release 24 hr Active 100 MG PO Daily 90 90 March 06, 2025 8:32am Complies with drug therapy take 1 tablet by corey th every [...] 7.5 mg dose, NOT 5 Active Tirzepatide (11 sources) Start: 03-06-2025 Tirzepatide 15 mg/0.5 mL pen injector Active 15 MG SUBCUT every week 6.5 90 March 06, 2025 8:32am Complies with drug therapy Start: 02-20-2025 End: 03-06-2025 Tirzepatide 15 mg/0.5 mL pen injector Discontinued 15 MG SUBCUT every week 2 February 20, 2025 12:00am March 06, 2025 8:33am Start: 02-20-2025 Tirzepatide 15 mg/0.5 mL pen injector Active 15 MG SUBCUT every week 2 February 20, 2025 12:00am Complies with drug therapy Start: 10-08-2023 End: 03-01-2024 Tirzepatide 15 mg/0.5 mL pen injector Discontinued 15 MG SUBCUT every week 2 October 08, 2023 1:22pm March 01, 2024 8:07am Start: 10-08-2023 End: 03-01-2024 Tirzepatide 15 mg/0.5 mL pen injector Discontinued 15 MG SUBCUT every week 2 October 08, 2023 12:22pm March 01, 2024 7:07am Start: 10-08-2023 End: 03-01-2024 inject 15 mg by subcutaneous injection every week Tirzepatide Discontinued 15 MG SUBCUT every week 2 October 08, 2023 1:22pm March 01, 2024 8:07am Start: 10-08-2023 End: 10-08-2023 Tirzepatide 15 mg/0.5 mL pen injector Discontinued 15 MG SUBCUT every week October 08, 2023 1:00am October 08, 2023 1:23pm Start: 10-08-2023 End: 10-08-2023 Tirzepatide 15 mg/0.5 mL pen injector Discontinued 15 MG SUBCUT every week October 08, 2023 12:00am October 08, 2023 12:23pm Start: 10-08-2023 End: 10-08-2023 inject 15 mg by subcutaneous injection every week Tirzepatide Discontinued 15 MG SUBCUT every week October 08, 2023 1:00am October 08, 2023 1:23pm Completed/Discontinued Medications Medication Drug Class(es) Dates Sig (Normalized) Sig (Original) methylPREDNISolone 4 mg oral tablet (2 sources) Corticosteroid Start: 5 End: 5 take 1 tablet by mouth once Methylprednisolone (Medrol (Henri)) 4 mg tablets,dose pack Discontinued 0 PO per package directions February 21, 2025 12:00am March 06, 2025 8:16am PO PER PKG DIR mounjaro 12.5 mg/0.5ml solution pen-injector (6 sources) Start: 3 inject 12.5 mg by subcutaneous injection every week as needed Mounjaro 12.5 MG/0.5ML 12.5 MG Subcutaneous Q week for 28 days E11.9 Jun, Not-Taking/PRN Start: 07-06-2023 inject 12.5 mg by [...] Refills: 0 Ordered: 27-Apr-2023 DO Active Tirzepatide (7 sources) Start: 08-31-2024 End: 09-27-2024 Tirzepatide (Mounjaro) 2.5 mg/0.5 mL pen injector Discontinued 2.5 MG SUBCUT every week 2 August 31, 2024 9:32am September 27, 2024 3:20pm Start: 08-31-2024 Tirzepatide (M ounjaro) 2.5 mg/0.5 mL pen injector Active 2.5 MG SUBCUT every week 2 August 31, 2024 8:32am Start: 03-01-2024 End: 08-31-2024 Tirzepatide (Mounjaro) 2.5 m g/0.5 mL pen injector Discontinued 2.5 MG SUBCUT every week 2 March 01, 2024 12:00am August 31, 2024 9:32am Start: 03-01-2024 End: 08-31-2024 Tirzepatide (Mounjaro) 2.5 m g/0.5 mL pen injector Discontinued 2.5 MG SUBCUT every week 2 February 29, 2024 11:00pm August 31, 2024 8:32am Start: 03-01-2024 Tirzepatide (M ounjaro) 2.5 mg/0.5 mL pen injector Active 2.5 MG SUBCUT every week 2 March 01, 2024 12:00am Tirzepatide (6 sources) Start: 01-19-2025 End: 02-20-2025 Tirzepatide 12.5 mg/0.5 mL p en injector Discontinued 12.5 MG SUBCUT every week 10 07January 19, 2025 1:10pm February 20, 2025 9:46am Start: 09-18-2023 End: 10-08-2023 Tirzepatide 12.5 mg/0.5 mL p en injector Discontinued 12.5 MG SUBCUT every week September 18, 2023 1:00am October 08, 2023 1:21pm Start: 09-18-2023 End: 10-08-2023 Tirzepatide 12.5 mg/0.5 mL p en injector Discontinued 12.5 MG SUBCUT every week September 18, 2023 12:00am October 08, 2023 12:21pm Start: 09-18-2023 End: 10-08-2023 inject 12.5 mg by subcutaneous injection every week Tirzepatide Discontinued 12.5 MG SUBCUT every week September 18, 2023 1:00am October 08, 2023 1:21pm Tirzepatide (4 sources) Start: 10-26-2024 End: 11-25-2024 Tirzepatide 5 mg/0.5 mL pen injector Discontinued 5 MG SUBCUT every week 2 October 26, 2024 11:53am November 25, 2024 10:41am Start: 09-27-2024 End: 10-26-2024 Tirzepatide 5 mg/0.5 mL pen injector Discontinued 5 MG SUBCUT every week 2 September 27, 2024 3:19pm October 26, 2024 11:53am Tirzepatide (2 sources) Start: 11-25-2024 End: 12-21-2024 Tirzepatide 7.5 mg/0.5 mL pe n injector Discontinued 7.5 MG SUBCUT every week 2 November 25, 2024 10:41am December 21, 2024 1:32pm Tirzepatide (2 sources) Start: 12-21-2024 End: 01-19-2025 Tirzepatide 10 mg/0.5 mL pen injector Discontinued 10 MG SUBCUT every week 2 December 21, 2024 1:32pm January 19, 2025 1:11pm Problems Active Problems Problem Classification Problem Date [...] Episodic Other diseases of veins and lymphatics (20 sources) Venous insufficiency of leg; Translations: [Venous insufficiency (chronic) (peripheral)] 09-18-2023 Episodic Other diseases of veins and lymphatics (5 sources) Venous insufficiency (chronic) (peripheral); Translations: [Venous (peripheral) insufficiency, unspecified] Episodic Other liver diseases (1 source) Fatty (change of) liver, not elsewhere classified; Translations: [Fatty (change of) liver, not elsewhere classified] Onset: 05-07-2023 Chronic Other nutritional; endocrine; and metabolic disorders (17 sources) Morbid obesity; Translations: [Morbid (severe) obesity due to excess calories] Chronic Other nutritional; endocrine; and metabolic disorders (6 sources) Morbid (severe) obesity due to excess calories; Translations: [Morbid obesity] Chronic Other nutritional; endocrine; and metabolic disorders (8 sources) Body mass index 40+ - severely [...] conditions (not mental disorders or infectious disease) (7 sources) Encounter for screening for malignant neoplasm of colon; Translations: [Patient encounter status] Episodic Residual codes; unclassified (20 sources) Obstructive sleep apnea syndrome; Translations: [Obstructive sleep apnea (adult) (pediatric)] 09-18-2023 Chronic Residual codes; unclassified (8 sources) Obstructive sleep apnea (adult) (pediatric); Translations: [...] (pediatric)] Onset: 08-17-2023 Chronic Residual codes; unclassified (4 sources) Hypoxia; Translations: [Idiopathic sleep related nonobstructive alveolar [...] Comment on above: 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; Spondylosis; intervertebral disc disorders; other back problems (4 sources) Low back pain; Translations: [Low back pain] 02-21-2025 Episodic Past or Other Problems Problem Classification Problem [...] IO EKG Electrocardiogram- 12 Lead; Status:Complete; Done: [id number] Renew: Metoprolol Succinate ER 100 MG Oral Tablet Extended Release 24 Hour; TAKE 1 TABLET DAILY Hypertension Start: amLODIPine Besy-Benazepril HCl - 5-20 MG Oral Capsule; TAKE 1 CAPSULE Daily Morbid obesity with BMI of 60.0-69.9, adult Healthy Weight Tips; Status:Complete - Retrospective Authorization; Done: [id number] Some eating tips that can help you lose weight.; Status:Complete - Retrospective Authorization; Done: [id number] SocHx: Former smoker Tobacco Use Screening; Status:Complete; Done: [id number] Unlinked Stop: Lisinopril 5 MG Oral Tablet [...] previous coronary stenting of the LAD in [place] in 2005. Has had no events since [...] of premature CAD. 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 Clopidogrel Bisulfate 75 MG Oral TabletTAKE 1 TABLET DAILY. Lisinopril 5 MG Oral TabletTAKE 1 TABLET DAILY. Metoprolol Succinate ER 100 MG Oral Tabl (more content not included)... Normal [facility] Tobacco Screening.on 023 Adult depression screening assessment No [facility] 250 DO Work Phone: Tobacco use status [facility] b) No [facility] 250 DO Work Phone: Vital Signs Date Time Vital Sign Value Performing Clinician Facility 03-06-2025 08:09-0400 Body height 190.5 cm Tri Thorpe APRN Work Phone: [facility] 03-06-2025 08:09-0400 Body mass index (BMI) [Ratio] 46.6 kg/m2 Tri Kernvicetne REGULATORY AGENCY DIRECTOR Work Phone: [facility] 03-06-2025 08:09-0400 Body temperature 95.6 [degF] Tri Ila REGULATORY AGENCY DIRECTOR Work Phone: [facility] 03-06-2025 08:09-0400 Body weight 169.18 kg Tri Kernvicente REGULATORY AGENCY DIRECTOR Work Phone: [facility] 03-06-2025 08:09-0400 Diastolic blood pressure 72 mm[Hg] Tri Ila REGULATORY AGENCY DIRECTOR Work Phone: [facility] 03-06-2025 08:09-0400 Heart rate 85 /min Tri Ila REGULATORY AGENCY DIRECTOR Work Phone: [facility] 03-06-2025 08:09-0400 SaO2% (BldA) [Mass fraction] 96 % Tri Kernvicente REGULATORY AGENCY DIRECTOR Work Phone: [facility] 03-06-2025 08:09-0400 Systolic blood pressure 130 mm[Hg] Tri Kernvicente REGULATORY AGENCY DIRECTOR Work Phone: [facility] 02-21-2025 13:04-0400 Body height 190.5 cm Tri Ila HALLN Work Phone: [facility] 02-21-2025 13:04-0400 Body mass index (BMI) [Ratio] 47.6 kg/m2 Tri Kernvicente REGULATORY AGENCY DIRECTOR Work Phone: [facility] 02-21-2025 13:04-0400 Body temperature 96.1 [degF] Tri Ila REGULATORY AGENCY DIRECTOR Work Phone: [facility] 02-21-2025 13:04-0400 Body weight 172.81 kg Tri Kernvicente REGULATORY AGENCY DIRECTOR Work Phone: [facility] 02-21-2025 13:04-0400 Diastolic blood pressure 82 mm[Hg] Tri Kernvicente REGULATORY AGENCY DIRECTOR Work Phone: [facility] 02-21-2025 13:04-0400 Heart rate 84 /min Tri Kernvicente REGULATORY AGENCY DIRECTOR Work Phone: [facility] 02-21-2025 13:04-0400 SaO2% (BldA) [Mass fraction] 98 % Tri Kernvicente REGULATORY AGENCY DIRECTOR Work Phone: [facility] 02-21-2025 13:04-0400 Systolic blood pressure 128 mm[Hg] Tri Kernvicente REGULATORY AGENCY DIRECTOR Work Phone: [facility] 08-31-2024 08:13-0500 Body height 190.5 cm [facility] 08-31-2024 08:13-0500 Body mass index (BMI) [Ratio] 48.5 kg/m2 [facility] 08-31-2024 08:13-0500 Body temperature 96.9 [degF] [facility] 08-31-2024 08:13-0500 Body weight 176.05 kg [facility] 08-31-2024 08:13-0500 Diastolic blood pressure 74 mm[Hg] [facility] 08-31-2024 08:13-0500 Heart rate 74 /min [facility] 08-31-2024 08:13-0500 SaO2% (BldA) [Mass fraction] 98 % [facility] 08-31-2024 08:13-0500 Systolic blood pressure 122 mm[Hg] [facility] 03-01-2024 08:03-0400 Body height 190.5 cm [facility] 03-01-2024 08:03-0400 Body mass index (BMI) [Ratio] 45.2 kg/m2 [facility] 03-01-2024 08:03-0400 Body weight 164.2 kg [facility] 03-01-2024 08:03-0400 Diastolic blood pressure 68 mm[Hg] [facility] 03-01-2024 08:03-0400 Heart rate 75 /min [facility] 03-01-2024 08:03-0400 SaO2% (BldA) [Mass fraction] 98 % [facility] 03-01-2024 08:03-0400 Systolic blood pressure 130 mm[Hg] [facility] 08-31-2023 14:30-0500 Body height 190.5 cm Pb [employer] Other [employer] Other 08-31-2023 14:30-0500 Body mass index (BMI) [Ratio] 47.54 kg/m2 Pb [employer] Other [employer] Other 08-31-2023 14:30-0500 Body weight 172.55 kg [employer]N [employer] Other [employer] Other 08-31-2023 14:30-0500 Diastolic blood pressure 78 mm[Hg] Pb [employer] Other [employer] Other 08-31-2023 14:30-0500 Respiratory rate 18 /min [employer] Other [employer] Other 08-31-2023 14:30-0500 SaO2% (BldA) [Mass fraction] 98 % Pb [employer] Other [employer] Other 08-31-2023 14:30-0500 Systolic blood pressure 126 mm[Hg] [employer] Other [employer] Other 08-17-2023 15:00-0500 Body height 190.5 cm Radha Hamlin Other [employer] Other 08-17-2023 15:00-0500 Body mass index (BMI) [Ratio] 49.12 kg/m2 Radha Hamlin Other [employer] Other 08-17-2023 15:00-0500 Body weight 178.26 kg Radha Hamlin Other [employer] Other 08-17-2023 15:00-0500 Diastolic blood pressure 84 mm[Hg] Radha Hamlin Other [employer] Other 08-17-2023 15:00-0500 SaO2% (BldA) [Mass fraction] 95 % Radha Hamlin Other [employer] Other 08-17-2023 15:00-0500 Systolic blood pressure 140 mm[Hg] Radha Hamlin Other [employer] Other 06-08-2023 15:00-0400 Body mass index (BMI) [Ratio] 52.62 kg/m2 Arcadioal Chaban Other [employer] Other 06-08-2023 15:00-0400 Body weight 190.97 kg Alejandra Chaban Other [employer] Other 06-08-2023 15:00-0400 Diastolic blood pressure 89 mm[Hg] Kamal Chaban Other [employer] Other 06-08-2023 15:00-0400 SaO2% (BldA) [Mass fraction] 95 % Arcadioal Chaban Other [employer] Other 06-08-2023 15:00-0400 Systolic blood pressure 146 mm[Hg] Kamal Chaban Other [employer] Other 06-08-2023 14:30-0400 Body height 190.5 cm Pb Madison Other [employer] Other 06-08-2023 14:30-0400 Body mass index (BMI) [Ratio] 52.29 kg/m2 Pb Madison Other [employer] Other 06-08-2023 14:30-0400 Body weight 189.79 kg Pb Madison Other [employer] Other 06-08-2023 14:30-0400 Diastolic blood pressure 80 mm[Hg] Pb Madison Other [employer] Other 06-08-2023 14:30-0400 Respiratory rate 18 /min Pb Madison Other [employer] Other 06-08-2023 14:30-0400 SaO2% (BldA) [Mass fraction] 94 % Pb Madison Other [employer] Other 06-08-2023 14:30-0400 Systolic blood pressure 141 mm[Hg] Pb Madison Other [employer] Other 05-07-2023 12:00-0400 Body height 190.5 cm Sebastien Cohen Other [employer] Other 05-07-2023 12:00-0400 Body mass index (BMI) [Ratio] 54.99 kg/m2 Sebastien Cohen Other [employer] Other 05-07-2023 12:00-0400 Body temperature 97.8 [degF] Sebastien Cohen Other [employer] Other 05-07-2023 12:00-0400 Body weight 199.58 kg Sebastien Travisroman Other [employer] Other 05-07-2023 12:00-0400 Diastolic blood pressure 82 mm[Hg] Sebastien Vicki Other [employer] Other 05-07-2023 12:00-0400 SaO2% (BldA) [Mass fraction] 98 % Sebastien Travisroman Other [employer] Other 05-07-2023 12:00-0400 Systolic blood pressure 128 mm[Hg] Sebastien Vicki Other [employer] Other 04-27-2023 14:01-0400 Diastolic blood pressure 92 mm[Hg] Tri Thorpe Work Phone: [facility] [employer] 250 DO Work Phone: 04-27-2023 14:01-0400 Systolic blood pressure 176 mm[Hg] Tri Thorpe Work Phone: [facility] [employer] 250 DO Work Phone: 04-27-2023 13:58-0400 Body height 182.88 cm Tri Thorpe Work Phone: [facility] [employer] 250 DO Work Phone: 04-27-2023 13:58-0400 Body mass index (BMI) [Ratio] 60.9 kg/m2 Tri Thorpe Work Phone: [facility] [employer] 250 DO Work Phone: 04-27-2023 13:58-0400 Body surface area Derived from formula 3 m2 Tri Thorpe Work Phone: [facility] 250 DO Work Phone: 04-27-2023 13:58-0400 Body weight 203.67 kg Trigina Gellermarilyntj Work Phone: [facility] 250 DO Work Phone: 04-27-2023 13:58-0400 Diastolic blood pressure 90 mm[Hg] Tri Thorpe Work Phone: [facility] 250 DO Work Phone: 04-27-2023 13:58-0400 Heart rate 78 /min Tri Thorpe Work Phone: [facility] 250 DO Work Phone: 04-27-2023 13:58-0400 Systolic blood pressure 178 mm[Hg] Tri Thorpe Work Phone: [facility] 250 DO Work Phone: 04-20-2023 14:15-0400 Body height 190.5 cm [employer] Other [employer] Other 04-20-2023 14:15-0400 Body mass index (BMI) [Ratio] 56.54 kg/m2 [employer] Other [employer] Other 04-20-2023 14:15-0400 Body weight 205.21 kg [employer] Other [employer] Other 04-20-2023 14:15-0400 Diastolic blood pressure 84 mm[Hg] [employer] Other [employer] Other 04-20-2023 14:15-0400 Respiratory rate 16 /min [employer] Other [employer] Other 04-20-2023 14:15-0400 SaO2% (BldA) [Mass fraction] 91 % Pb Madison Other [employer] Other 04-20-2023 14:15-0400 Systolic blood pressure 131 mm[Hg] Pb Madison Other [employer] Other 04-01-2023 09:30-0400 Body height 193.04 cm Tri Thorpe Other [employer] Other 04-01-2023 09:30-0400 Body mass index (BMI) [Ratio] 54.89 kg/m2 Tri Thorpe Other [employer] Other 04-01-2023 09:30-0400 Body weight 204.57 kg Tri Thorpe Other [employer] Other 04-01-2023 09:30-0400 Diastolic blood pressure 76 mm[Hg] Tri Thorpe Other [employer] Other 04-01-2023 09:30-0400 Respiratory rate 16 /min Tri Thorpe Other [employer] Other 04-01-2023 09:30-0400 SaO2% (BldA) [Mass fraction] 94 % Tri Thorpe Other [employer] Other 04-01-2023 09:30-0400 Systolic blood pressure 124 mm[Hg] Tri Thorpe Other [employer] Other Encounters Encounter Date Encounter Type Care Provider Facility Start: 03-06-2025 End: 03-06-2025 ambulatory Tri Thorpe JUSTYNA Work Phone: [facility] Work Phone: Start: 03-06-2025 End: 03-06-2025 Patient encounter procedure Tri Thorpe JUSTYNA [facility] Work Phone: Start: 03-06-2025 End: 03-06-2025 Patient encounter status Tri Thorpe JUSTYNA [facility] Start: 02-21-2025 End: 02-21-2025 ambulatory Tri Thorpe REGULATORY AGENCY DIRECTOR Work Phone: [facility] Work Phone: Start: 02-21-2025 End: 02-21-2025 Patient encounter procedure Tri Thorpe JUSTYNA [facility] Work Phone: Start: 08-31-2024 End: 08-31-2024 ambulatory [facility] Work Phone: Start: 08-31-2024 End: 08-31-2024 Patient encounter procedure [facility] Physician [facility] Work Phone: Start: 03-01-2024 Patient encounter status [facility] Start: 03-01-2024 End: 03-01-2024 ambulatory [facility] Work Phone: Start: 03-01-2024 End: 03-01-2024 Encounter for general adult medical examination without abnormal findings [facility] Start: 03-01-2024 End: 03-01-2024 Patient encounter procedure [facility] Physician [facility] Work Phone: Start: 10-12-2023 End: 10-12-2023 ambulatory SOREN VAUGHAN Not Available Start: 08-31-2023 End: 08-31-2023 ambulatory Tri Thorpe [facility] Other Start: 08-31-2023 Follow-up encounter [facility] Start: 08-17-2023 End: 08-17-2023 Patient encounter procedure JUSTYNA Thorpe Work Phone: [facility] Work Phone: Start: 08-17-2023 End: 08-17-2023 ambulatory JUSTYNA Thorpe Work Phone: [facility] Work Phone: Start: 08-17-2023 Office outpatient vi sit 25 minutes Radha [facility] Start: 08-12-2023 End: 08-12-2023 ambulatory Pb Madison Other [employer] Other Start: 08-12-2023 Telephone encounter [facility] Start: 08-06-2023 End: 08-06-2023 ambulatory Pb Madison Other [employer] Other Start: 08-06-2023 Telephone encounter [facility] Start: 07-27-2023 End: 07-27-2023 ambulatory Pb Madison Other [employer] Other Start: 07-27-2023 Telephone encounter [facility] Start: 07-06-2023 End: 07-06-2023 ambulatory bP [place] Other [employer] Other Start: 07-06-2023 Telephone encounter [facility] Start: 06-08-2023 End: 06-08-2023 ambulatory TRI ABHI [facility] Ambulatory Start: 06-08-2023 Registered Recurring JUSTYNA Thorpe Work Phone: [facility] Work Phone: Start: 06-08-2023 End: 06-08-2023 Patient encounter procedure JUSTYNA Thorpe Work Phone: [facility] Work Phone: Start: 06-08-2023 End: 06-08-2023 ambulatory REGULATORY AGENCY DIRECTORFavian FordTri Ila Work Phone: [facility] Work Phone: Start: 06-08-2023 Follow-up encounter Pb Strong [facility] Start: 06-08-2023 Office outpatient ne w 30 minutes [facility] Start: 05-12-2023 End: 05-12-2023 ambulatory Pb Madison Other [employer] Other Start: 05-12-2023 Telephone encounter Pb Strong [facility] Start: 05-08-2023 End: 05-08-2023 ambulatory Tri Thorpe Other [employer] Other Start: 05-08-2023 Telephone encounter Tri Warren [facility] Start: 05-07-2023 End: 05-07-2023 Patient encounter procedure REGULATORY AGENCY DIRECTORFavian Thorpe Work Phone: [facility] Work Phone: Start: 05-07-2023 End: 05-07-2023 ambulatory [facility] Facility:[facility] Start: 05-07-2023 Office outpatient ne w 30 minutes Sebastien Cohen [facility] Start: 05-07-2023 Telephone encounter Sebastien moura [facility] [employer]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 Start: 05-07-2023 End: 05-07-2023 Patient encounter procedure REGULATORY AGENCY DIRECTOR Tri Thorpe Work Phone: [facility]Digestive [facility] Work Phone: Start: 05-07-2023 End: 05-07-2023 ambulatory REGULATORY AGENCY DIRECTORFavian Thorpe Work Phone: [facility] Work Phone: Start: 04-27-2023 Office consultation new/estab patient 60 min Tri Thorpe Work Phone: -[facility] DO Work Phone: Start: 04-27-2023 ambulatory Dejesus Tran Facility :[facility] Start: 04-23-2023 End: 04-23-2023 ambulatory Tri Thorpe Other [employer] Other Start: 04-23-2023 Telephone encounter Tri Warren her [facility] Start: 04-20-2023 End: 04-20-2023 ambulatory Pb Madison Other [employer] Other Start: 04-20-2023 Nutrition therapy Pb Madison [facility] Start: 04-20-2023 Registered Recurring JUSTYNA Thorpe Work Phone: [facility]Weight [facility] Work Phone: Start: 04-07-2023 End: 04-07-2023 ambulatory Tri Thorpe Other [employer] Other Start: 04-07-2023 Telephone encounter Tri Warren her [facility] Start: 04-05-2023 End: 04-05-2023 ambulatory Pb Madison Other [employer] Other Start: 04-05-2023 Encounter by abdullahi Ambriz [facility] Start: 04-02-2023 ambulatory Oleg Andersenahim Facility :[facility] Start: 04-01-2023 End: 04-01-2023 ambulatory Tri Thorpe Other [employer] Other Start: 04-01-2023 Office outpatient ne w 30 minutes Tri Thorpe [facility] Procedures Date Procedure Procedure Detail Performing Clinician Start: 02-21-2025 XR lumbar spine min 4V* Tri Kelvin mary REGULATORY AGENCY DIRECTOR Work Phone: Start: 05-07-2023 Ultrasound elastography of liver REGULATORY AGENCY DIRECTOR Tri Ila Work Phone: Cardiac catheterization Phoebe Thorpe Work Phone: Extraction of wisdom tooth J katey Thorpe Work Phone: History of placement of stent for coronary artery disease Status post insertion of drug eluting coronary artery stent Tri Thorpe Work Phone: History of placement of stent in anterior descending branch of left coronary artery Tri Thorpe Other Tonsillectomy and adenoidectomy Tri Thorpe Work Phone: Vasectomy rTi hurley Work Phone: Plan of Treatment Date Care Activity Detail Author Start: 05-07-2023 [facility] Comprehensive metabo lic 1999 panel - Serum or Plasma [facility] metabo lic 1999 panel - Serum or Plasma [facility] Patient Education Low back pain in adults [facility] Work Phone: XR Lumbar spine GE 4 Views F [facility] Immunizations Immunization Date Immunization Notes Care Provider Butch garcia 08-16-2021 Moderna COVID-19 Vaccine 100 MCG/0.5ML Intramuscular Suspension Tri Thorpe Work Phone: [facility] DO Work Phone: 07-19-2021 Moderna COVID-19 Vaccine 100 MCG/0.5ML Intramuscular Suspension Tri Thorpe Work Phone: [facility] DO Work Phone: Payers Date Payer Category Payer Self-pay 2021 [employer] Blue [facility] HUM [id number] 1972 Unknown [id number] 1972 Unknown [id number] 2.16.8 [id number] 1972 Unknown [id number] 2.16.84 [id number] Unknown ANTHEM Unknown [id number] 2.16.8 [id number] Unknown [id number] 2.16.8 [id number] Unknown [id number] 2.16.8 [id number] Unknown [id number] 2.16.8 [id number] Unknown [id number] 2.16.8 [id number] Unknown [facility] [id number] Unknown [facility] [id number] Social History Date Type Detail Facility Sex Assigned At [facility] Other No illicit drug use No illicit drug use [place] [id number] DO Work Phone: Comment on above: 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; 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; 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; Start: 1970 Sex Assigned At Male [facility] Start: 03-01-2024 End: 03-01-2024 Tobacco smoking status NHIS Never smoked tobacco (finding) [facility] Start: 08-31-2024 Sex Male (finding) [facility] Goals Date Patient Goal Desired Activity /State Clinical Notes 04-01-2023 to 02-21-2025 Note Date & Type Note Facility 02-21-2025 Evaluation note Diagnosis Onset Date Resolution Lower back pain acute February 1:01pm Hyperlipidemia acute March 06, 2025 8:02am Primary hypertension acute March 06, 2025 8:02am Screening for prostate cancer acute March 06, 2025 8:02am Type 2 diabetes mellitus acute March 06, 2025 8:02am Wellness examination acute March 06, 2025 8:02am [facility] Work Phone: [phone]) 725-456901-22-2024 Evaluation note* Encounter Date Diagnosis Assessment Notes Treatment Notes Treatment Clinical Notes Aug, Severe obesity (BMI >= 40) [...] After informed discussion, patient would like to proceedOrders:-Bob nue Mounjaro once weekly. Next dose 12.5 mg once weekly. Patient without side effect -FibroScan performed 05-14-2023 showing S3, F0-F1-A1c March 2023 7.1%-Follow up in clinic in 10 weeks with who is also a patientThis note was created with voice recognition software. 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 [...] increased sleepiness, or poor response to treatment. [employer] Other 10-30-2023 Evaluation note* Encounter Date Diagnosis [...] voice recognition software. 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 May, Dietary surveillance and counseling (ICD-10 - [...] with the patient, and documenting clinical information. [employer] Other 10-30-2023 Evaluation note* Encounter Date Diagnosis [...] that May, Other obesity (ICD-10 - E66.8) [employer] Other 10-03-2023 Evaluation note* Encounter Date Diagnosis Assessment Notes Treatment Notes Treatment Clinical Notes May, Type 2 diabetes mellitus (ICD-10 - E11.9) [employer] Other 09-28-2023 Evaluation note* Encounter Date Diagnosis [...] study that was recently completed and not [place] within the last year. We will find the study and review it and see if we can help this patient or offer him anything meantime I did recommend compression stockings the patient refused. Apr, Right leg swelling (ICD-10 - M79.89) [employer] Other 09-14-2023 Evaluation note* Encounter Date Diagnosis Assessment Notes Treatment Notes Treatment Clinical Notes Apr, Colon cancer screening (ICD-10 - Z12.11) [employer] Other 09-11-2023 Evaluation note* Encounter Date Diagnosis [...] voice recognition software. 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 Apr, Dietary surveillance and counseling (ICD-10 - [...] with the patient, and documenting clinical information. [employer] Other 08-23-2023 Evaluation note* Encounter Date Diagnosis [...] Z83.3) Mar, Atherosclerotic hear t disease of [place] coronary artery without angina pectoris (ICD-10 - [...] weight lose clinic. ALso will refer to [facility] vascular for a second opinion of treatment for this. Referral placed. Mar, Chronic venous insufficiency of lower extremity (ICD-10 - I87.2) Mar, Obesity, morbid, BMI 50 or higher (ICD-10 - E66.01) [facility] Other Evaluation [facility]No [facility] Other Evaluation noteNo assessment information available [facility] Work Phone: Evaluation note* Diagnosis Onset Date Resolution Status ASCVD (arteriosclerotic cardiovascular disease) acute CAD (coronary artery disease) acute Chronic venous insufficiency of lower extremity acute Hyperlipidemia acute Obstructive sleep apnea acut e Primary hypertension acute Screening for prostate cancer acute Severe obesity (BMI >= 40) a cute Type 2 diabetes mellitus acu te Wellness examination acute [facility] Work Phone: Evaluation note* Diagnosis Onset Date Resolution Status Admit Date ASCVD (arteriosclerotic cardiovascular disease) acute August 31, 2024 8:09am CAD (coronary artery disease) acute August 31, 2024 8:09am Chronic venous insufficiency of lower extremity acute August 31 8:09am Hyperlipidemia acute August 312024 8:09am Obstructive sleep apnea acute J anuary 2024 8:09am Primary hypertension acute Christian jonathan 2024 8:09am Severe obesity (BMI >= 40) acute August 31, 2024 8:09am Type 2 diabetes mellitus acute August 31, 2024 8:09am [facility] Work Phone: Evaluation note* Diagnosis Onset Date Resolution Status Admit Date Lower back pain acute February 1:01[facility] Work Phone: History general Narrative - Reported* Type Description Date Medical History ANGINA PECTORIS Medical History CAD Medical History CORONARY ANGIOPLASTY DISEASE Medical History HYERLIPDEMA Medical History HYERTENSION Surgical History HEART STENT 2006 Surgical History CARDIAC CATH Surgical History TONSILLECTOMY Hospitalization History SEE SURGICAL HX [employer] Other Hiscqpe general Narrative - Reported* Type Description Date Medical History ANGINA PECTORIS Medical History CAD Medical History CORONARY ANGIOPLASTY DISEASE Medical History HYERLIPDEMA Medical History HYERTENSION Surgical History HEART STENT 2006 Surgical History CARDIAC CATH Surgical History TONSILLECTOMY Surgical History [place] teeth extraction Hospitalization History SEE SURGICAL HX [employer] Other Histikg general Narrative - Reported* Type Description Date Medical History ANGINA PECTORIS Medical History CAD Medical History CORONARY ANGIOPLASTY DISEASE Medical History HYERLIPDEMA Medical History HYERTENSION Medical History KASEY Surgical History HEART STENT 2006 Surgical History CARDIAC CATH Surgical History TONSILLECTOMY Surgical History [place] teeth extraction Hospitalization History SEE SURGICAL [employer] Other Reason for referral (narrative)No reason for referral information availableC[facility] Work Phone: Reason for Referral Reason *FU 04/09 evaluate Diagnosis 1 Mixed hyperlipidemia (E78.2) Diagnosis 2 Atherosclerotic hear t disease of [place] coronary artery without angina pectoris (I25.10) Diagnosis 3 Coronary atheroscler osis due to lipid rich plaque (I25.83) Diagnosis 4 History of placement of stent in LAD coronary artery (Z95.5) Referral Organization [facility] [employer] [place] Referring Provider First Name Tri Referring Provider Last Name Ila Referring Provider Specialty Nurse Pract itioner Referred Organization [facility] enter Referred Provider Polly De Leon Referred Address [address] [place] [address] Referred Provider Specialty Internal Med leoncione Referral Priority Routine General Notes Rimma Perez 11:38:16 AM >received today, attachments made, notes locked, referral faxed Reason *Waiting for appt evaluate Diagnosis 1 Bilateral lower extr emity edema (R60.0) Diagnosis 2 Chronic venous insuf ficiency of lower extremity (I87.2) Referral Organization [facility] Family Medicin e [place] Referring Provider First Name Tri Referring Provider Last Name Ila Referring Provider Specialty Nurse Pract nevaeh Referred Organization [facility] Vascular Surge ry Referred Provider Mike Callaway Referred Address [address] [facility],[address],[place], [place],[address] Referred Provider Specialty Vascular [place] snow Referral Priority Routine General Notes Rimma Perez 11:35:04 AM >received today, sent P2P Chief Complaint * ROHRBACKER-CAD,PCI,LIPIDS. * 53-year-old white male who is being referred to me for establishing cardiac relationship due to previous coronary stenting of the LAD in [place] in 2005. Has had no events since [...] of premature CAD. 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 [...] Advance Directives No August 28, 2023 11:08am Advance Directive Response Recorded Date/ Time Advance Directives No August 28, 2023 10:08am Chief Complaint and Reason for Visit Chief [...] 40) Type 2 diabetes mellitus Wellness examination Chief Complaint Admit Date 6 month follow up August 31, 2024 8 :09am Reason for Visit Admit Date ASCVD (arteriosclerotic cardiovascular d isease) August 31, 2024 8:09am CAD (coronary artery disease) August 312024 8:09am Chronic venous insufficiency of lower ex tremity August 31, 2024 8:09am Hyperlipidemia August 31, 2024 8 :09am Obstructive sleep apnea August 31 8:09am Primary hypertension August 31, 2024 8:09am Severe obesity (BMI >= 40) August 31, 2024 8:09am Type 2 diabetes mellitus August 31 8:09am Chief Complaint Admit Date Back pain February 21, 2025 1:01 pm Reason for Visit Admit Date Lower back pain February 21, 2025 1:01 pm Chief Complaint Admit Date Back pain February 21, 2025 1:01 pm Wellness March 06, 2025 8:02 am Reason for Visit Admit Date Lower back pain February 21, 2025 1:01 pm Hyperlipidemia March 06, 2025 8:02 am Primary hypertension March 06, 2025 8:0 2am Screening for prostate cancer March 06, 2025 8:02am Type 2 diabetes mellitus March 06, 2025 8:02am Wellness examination March 06, 2025 8:0 2am Additional Source Comments REASON FOR VISIT (unrecogniz [...] section and content) DATE CREATED AUTHOR 04/28/2023 [facility] DATE CREATED AUTHOR AUTHOR'S ORGANIZ ATION 04/28/2023 [employer] DATE CREATED AUTHOR AUTHOR'S ORGANIZ ATION 06/09/2023 [facility] DATE CREATED AUTHOR AUTHOR'S ORGANIZ ATION 10/13/2023 [facility] EPIC DATE CREATED AUTHOR AUTHOR'S ORGANIZ ATION 01/11/2024 [facility] Care Teams (unrecognized sec tion and content) Team Status: Active Member Role Status Dates Tri Rohrbacher , REGULATORY AGENCY DIRECTOR GAS REGULATOR REPAIRER-C Primary Care Provider Active Team Status: Active Member Role Status Dates Tri Ila REGULATORY AGENCY DIRECTOR GAS REGULATOR REPAIRER-C Primary Care Provider, Attending Provider Active Team Status: Inactive Member Role Status Dates Tri JUSTYNA Thorpe GAS REGULATOR REPAIRER-C Primary Care Provider Active Pb Madison DO Attending Provider Active Team Status: Inactive Member Role Status Dates Alejandra Da Silva MD Attending Provider Active Tri Thorpe APRN GAS REGULATOR REPAIRER-C Primary Care Provider, Referring Provider Active Team Status: Inactive Member Role Status Dates Tri Thorpe APRN GAS REGULATOR REPAIRER-C Primary Care Provider Active Alejandra Da Silva MD Attending Provider Active Team Status: Inactive Member Role Status Dates Trijaden Thorpe APRN GAS REGULATOR REPAIRER-C Primary Care Provider Active Radha Hamlin NP Attending Provider Active Team Status: Inactive Member Role Status Dates Tri Ila REGULATORY AGENCY DIRECTOR GAS REGULATOR REPAIRER-C Primary Care Provider, Attending Provider Active Start: March 01, 2024 End: March 01, 2024 Team Status: Inactive Member Role Status Dates Tri Ila REGULATORY AGENCY DIRECTOR GAS REGULATOR REPAIRER-C Primary Care Provider, Attending Provider Active Start: August 31, 2024 End: August 31, 2024 Team Status: Inactive Member Role Status Dates Tri Kernvicente REGULATORY AGENCY DIRECTOR GAS REGULATOR REPAIRER-C Primary Care Provider Active Start: February 21, 2025 End: February 21, 2025 Trijaden Thorpe APRN GAS REGULATOR REPAIRER-C Attending Provider Act sofia Start: February 21, 2025 End: February 21, 2025 Team Status: Inactive Member Role Status Dates Tri Ila REGULATORY AGENCY DIRECTOR GAS REGULATOR REPAIRER-C Primary Care Provider Active Start: March 06, 2025 End: March 06, 2025 Trijaden Thorpe APRN GAS REGULATOR REPAIRER-C Attending Provider Act sofia Start: March 06, 2025 End: March 06, 2025 Goals (unrecognized section and content) Goals may [...] BE BASED ON THE PRIMARY CLINICAL RECORDS. [facility] [employer] [facility]. provides no warranty or guarantee of the accuracy or completeness of information in this document.
[2025-03-27 09:39] LABS: Hematocrit 44.5 % (42.0-54.0); Hemoglobin 15.3 g/dL (14.0-18.0); Immature Granulocytes Abs Auto 0.02 10^3/uL (0.00-0.03); Immature Granulocytes Pct Auto 0.3 % (0.0-0.5); Lymphocytes Absolute Auto 2.0 10^3/uL (1.2-3.8); Mean Corpuscular HGB Conc 34.4 g/dL (29.9-35.2); Mean Corpuscular Hemoglobin 30.8 pg (25.9-34.0); Mean Corpuscular Volume 89.7 fL (80.0-94.0); Platelet Count 205 10^3/uL (150-450); Red Blood Count 4.96 10^6/uL (4.70-6.10); White Blood Count 6.6 10^3/uL (4.0-11.0)
[2025-03-27 10:30] LABS: Alanine Aminotransferase 39 U/L (16-63); Albumin Globulin Ratio 1.1; Albumin Level 3.7 g/dL (3.4-5.0); Alkaline Phosphatase 99 U/L (46-116); Anion Gap 11.0; Aspartate Amino Transferase 23 U/L (15-37); Blood Urea Nitrogen 20.0 mg/dL (7.0-18.0); Calcium 8.7 mg/dL (8.5-10.1); Carbon Dioxide 25.1 mmol/L (21.0-32.0); Chloride 110 mmol/L (98-107); Cholesterol 130 mg/dL (<=200); Estimated GFR (African America >60 (>=60 mL/min/1.73m^2); Estimated GFR (Non-African Ame >60 (>=60 mL/min/1.73m^2); Globulin 3.4 g/dL; Glucose 107 mg/dL (74-106); HDL Cholesterol 38 mg/dL (40-60); Potassium 4.1 mmol/L (3.5-5.1); Sodium 142 mmol/L (136-145); Total Protein 7.1 g/dL (6.4-8.2); Triglycerides 94 mg/dL (<=150); VLDL CHOLESTEROL 18.8 mg/dL
== END 2025-03-27 09:11 | disposition home or self-care (01) ==
LOC: LAB 09:10
PROVIDERS: PCP Nurse Practitioner Family; Visit Provider Nurse Practitioner Family
DX: Z00.00 Encounter for general adult medical examination without abnormal findings (principal); E11.9 Type 2 diabetes mellitus without complications; I10 Essential (primary) hypertension; E78.5 Hyperlipidemia, unspecified; Z12.5 Encounter for screening for malignant neoplasm of prostate
CPT/HCPCS: 36415; 80053; 80061; 82043; 82570; 85025; G0103